=== PATIENT | female | born 1965 | race Two or more races ===

== ENCOUNTER 2017-02-27 12:10 | Inpatient (IN) | payer OTHER ==
--- NOTE | 2017-02-27 12:46 | PDOC ---
History of Present Illness - History of Present Illness Initial Comments: 02/27/17 14:03 The patient is a 53 year old female, with a significant past medical history of HTN, pituitary brain tumor, and borderline diabetes, who presents to the emergency department with right upper quadrant pain intermittently for 3 months. Patient states abdominal pain began 3 months ago, pain became so intense she decided to come to the ER. She describes her abdominal pain as sharp , intermittent, localized under right rib cage, does not radiate and says that it feels like something is being pulled out. She states no position makes it better or worse. She says it comes on randomly. Her pain today began this afternoon. And before today, her last episode was two days ago. She states that it will usually last for hours on end, sometimes the whole day. She tried taking extra strength tylenol but it did not lessen her pain. Two weeks she had an ultrasound done at her employer, [facility], by one of the techs and they found gallstones. She also states she vomited 2x this morning. She also states she experiences burning when she pees sometimes. She denies recent fevers, chills, headache or dizziness. She denies recent nausea, diarrhea or constipation. She denies recent frequency, urgency or hematuria. She denies recent chest pain or shortness of breath. Allergies: aspirin & ibruprofen Past surgical history: Social history: Nonsmoker. Denies EtOH use and recreational drug use. Primary Care Physician: <Myranda Chang - Last Filed: 02/27/17 14:03> <Mally Mccord - Last Filed: 02/27/17 16:23> - General Chief Complaint: Pain Stated Complaint: ABD/PELVIC PAIN Time Seen by Provider: 02/27/17 12:40 Past History <Myranda Chang - Last Filed: 02/27/17 14:03> - Past Medical History COPD: No DVT: No GI Disorders: Yes (GALLSTONES) Hypercholesterolemia: Yes Other medical history: PITUITARY TUMOR - Suicide/Smoking/Psychosocial Hx Smoking History: Never smoked Hx Alcohol Use: No Drug/Substance Use Hx: No <Mally Mccord - Last Filed: 02/27/17 16:23> - Past Medical History Allergies/Adverse Reactions: Allergies Allergy/AdvReac Type Severity Reaction Status Date / Time aspirin Allergy Difficulty Verified 02/27/17 12:23 Breathing ibuprofen Allergy Difficulty Verified 02/27/17 12:23 Breathing Home Medications: Ambulatory Orders NK [No Known Home Medication] 02/27/17 Review of Systems - Review of Systems Comments:: 02/27/17 14:03 GENERAL/CONSTITUTIONAL: No fever or chills. No weakness. HEAD, EYES, EARS, NOSE AND THROAT: No change in vision. No ear pain or discharge. No sore throat. GASTROINTESTINAL: +abdominal pain. +vomitting (2x).No nausea, diarrhea or constipation. GENITOURINARY: +dysuria No frequency, or change in urination. CARDIOVASCULAR: No chest pain or shortness of breath. RESPIRATORY: No cough, wheezing, or hemoptysis. MUSCULOSKELETAL: No joint or muscle swelling or pain. No neck or back pain. SKIN: No rash NEUROLOGIC: No headache, vertigo, loss of consciousness, or change in strength/ sensation. ENDOCRINE: No increased thirst. No abnormal weight change. HEMATOLOGIC/LYMPHATIC: No anemia, easy bleeding, or history of blood clots. ALLERGIC/IMMUNOLOGIC: No hives or skin allergy. <Myranda Chang - Last Filed: 02/27/17 14:03> *Physical Exam - Vital Signs Last Vital Signs Temp Pulse Resp BP Pulse Ox 98.0 F 115 H 20 203/114 98 02/27/17 12:19 02/27/17 12:19 02/27/17 12:19 02/27/17 12:19 02/27/17 12:19 - Physical Exam Comments: 02/27/17 14:05 GENERAL: Awake, alert, and fully oriented, in no acute distress HEAD: No signs of trauma EYES: PERRLA, EOMI, sclera anicteric, conjunctiva clear ENT: Auricles normal inspection, hearing grossly normal, nares patent, oropharynx clear without exudates. Moist mucosa NECK: Normal ROM, supple, no lymphadenopathy, JVD, or masses LUNGS: Breath sounds equal, clear to auscultation bilaterally. No wheezes, and no crackles HEART: Regular rate and rhythm, normal S1 and S2, no murmurs, rubs or gallops ABDOMEN: +RUQ + epigastric pain. Soft, nontender, normoactive bowel sounds. No guarding, no rebound. No masses EXTREMITIES: Normal range of motion, no edema. No clubbing or cyanosis. No cords, erythema, or tenderness NEUROLOGICAL: Cranial nerves II through XII grossly intact. Normal speech, normal gait SKIN: Warm, Dry, normal turgor, no rashes or lesions noted. <Myranda Chang - Last Filed: 02/27/17 14:03> - Vital Signs Last Vital Signs Temp Pulse Resp BP Pulse Ox 98.0 F 115 H 20 203/114 98 02/27/17 12:19 02/27/17 12:19 02/27/17 12:19 02/27/17 12:19 02/27/17 12:19 <Mally Mccord - Last Filed: 02/27/17 16:23> ED Treatment Course - LABORATORY CBC & Chemistry Diagram: 02/27/17 13:23 02/27/17 12:48 - ADDITIONAL ORDERS Additional order review: 02/27/17 13:23 RBC 4.86 MCV 86.0 MCHC 33.0 RDW 12.7 MPV 8.0 Neutrophils % 77.7 Lymphocytes % 13.0 Monocytes % 6.1 Eosinophils % 2.8 Basophils % 0.4 - Medications Given in the ED: ED Medications Discontinued Medications Generic Name Dose Route Start Last Admin Trade Name Freq PRN Reason Stop Dose Admin Famotidine/Sodium Chloride 20 mg in 50 mls @ 100 mls/hr 02/27/17 12:47 13:15 Pepcid 20 Mg Premixed Ivpb - IVPB 02/27/17 13:16 100 mls/hr ONCE ONE Administration Morphine Sulfate 2 mg 02/27/17 12:47 02/27/17 13:15 Morphine Injection - IVPUSH 02/27/17 12:48 2 mg ONCE ONE Administration Ondansetron HCl 4 mg 02/27/17 12:47 02/27/17 13:15 Zofran Injection IVPUSH 02/27/17 12:48 4 mg ONCE ONE Administration <Myranda Chang - Last Filed: 02/27/17 14:03> - LABORATORY CBC & Chemistry Diagram: 02/27/17 13:23 02/27/17 12:48 <Mally Mccord - Last Filed: 02/27/17 16:23> Medical Decision Making - Medical Decision Making 02/27/17 15:06 a/p: 52yo female with RUQ pain assoc w n/v today -hx of gallstones on ultrasound at [facility] -will check labs, concern for gastritis vs PUD vs acute jamie vs choledocho -repeat ultasound RUQ -npo -ivf -pain control -nausea control -reassess 02/27/17 15:45 pt with elevated LFT pt with cholelithiasis and mild pericholecystic fluid call placed to surgery 02/27/17 15:53 case discussed with WHITE who recommends iv abx, npo, poss OR tomorrow. admit to hospitalists. 02/27/17 16:23 case discussed with medicine. accepts pt to service. under emiliano archer md <Mally Mccord - Last Filed: 02/27/17 16:23> *DC/Admit/Observation/Transfer - Attestations Scribe Attestion: 02/27/17 14:05 Documentation prepared by Myranda Chang, acting as biomedical equipment tech for Mally Mccord DO. <Myranda Chang - Last Filed: 02/27/17 14:03> - Discharge Dispostion Admit: Yes - Attestations Physician Attestion: 02/27/17 15:53 I, Dr. Mally Mccord DO, attest that this document has been prepared under my direction and personally reviewed by me in its entirety. I further attest, that it accurately reflects all work, treatment, procedures and medical decision -making performed by me. <Mally Mccord - Last Filed: 02/27/17 16:23> Diagnosis at time of Disposition: Acute cholecystitis - Discharge Dispostion Condition at time of disposition: Guarded - Referrals Referrals: Paul Mosqueda MD [Primary Care Provider] -
[2017-02-27] MEDS ORDERED: ONDANSETRON 4 MG/2 ML VIAL IVPUSH ONE ×2 (12:47→19:31)
[2017-02-27] MEDS ORDERED: morphine CARPU-JECT 2 MG/1 ML DISP.SYRIN IVPUSH ONE (12:47)
[2017-02-27] MEDS ORDERED: FAMOTIDINE 20 MG/50 ML IVPB 20 MG/50 ML MG IVPB ONE ×2 (12:47→12:58)
[2017-02-27] MEDS ORDERED: SODIUM CHLORIDE 0.9% 1000 ML INFUS.BAG IV ONE (12:47)
[2017-02-27] MEDS ORDERED: ONDANSETRON 4 MG/2 ML VIAL ONE ×2 (12:58→20:06)
[2017-02-27] MEDS ORDERED: morphine SULFATE 4 MG/ML VIAL ONE ×2 (12:58→19:27)
[2017-02-27 13:51] LABS: BASOPHIL 0.4 % (0-2.0); EOSINOPHIL 2.8 % (0-4.5); MCH 28.4 pg (25.7-33.7); NEUTROPHILS 77.7 % (42.8-82.8); PLATELET COUNT 379 K/MM3 (134-434); RDW 12.7 % (11.6-15.6); WHITE BLOOD COUNT 13.8 K/mm3 (4.0-10.0)
[2017-02-27 14:22] LABS: ANION GAP 10 (8-16); BILIRUBIN,TOTAL 0.6 mg/dL (0.2-1.0); CALCIUM 8.9 mg/dL (8.5-10.1); CO2 23 mmol/L (21-32); CREATININE 0.8 mg/dL (0.55-1.02); GLUCOSE,RANDOM 110 mg/dL (74-106); SGPT/ALT 189 U/L (12-78); TOT PROT 8.4 g/dl (6.4-8.2)
[2017-02-27 14:23] LABS: ALK PHOS 280 U/L (45-117)
[2017-02-27 14:24] LABS: SGOT/AST 346 U/L (15-37)
[2017-02-27 14:35] LABS: INR 1.04 (0.82-1.09); PROTHROMBIN TIME (PATIENT) 11.7 SEC (9.98-11.88)
[2017-02-27 14:36] LABS: URINE APPEARANCE CLEAR; URINE BILIRUBIN NEGATIVE (NEGATIVE); URINE BLOOD NEGATIVE (NEGATIVE); URINE COLOR YELLOW; URINE GLUCOSE (UA) NEGATIVE (NEGATIVE); URINE KETONE NEGATIVE (NEGATIVE); URINE NITRITE NEGATIVE (NEGATIVE)
[2017-02-27 14:57] LABS: URINE PROTEIN 1+ (NEGATIVE)
[2017-02-27 15:13] LABS: URINE HYALINE CAST 1 /lpf; URINE MUCUS RARE; URINE RBC < 1; URINE WBC 2
[2017-02-27] MEDS ORDERED: cefTRIAXone 1 GM/50 ML BAG (PRE-DOCKED) IVPB ONE (15:49)
[2017-02-27] MEDS ORDERED: METRONIDAZOLE 500 MG PREMIXED 500 MG/100 ML MG IVPB ONE ×2 (15:50→16:52)
--- NOTE | 2017-02-27 16:14 | PN ---
Progress Note (short form) - Note Progress Note: surgery asked to evaluate for acute cholecystitis. u/s with gallstones. wbc elevated. elevated transaminases and alk phos. Plan- acute cholecysitits vs choledocholithiasis. agree with admission and rocephin/flagyl. suggest GI eval for choledocholithiasis. MRCP may be helpful if previous pituitary surgery permits. repeat lfts in am. keep npo. formal eval to follow.
[2017-02-27] MEDS ORDERED: CEFTRIAXONE 1 GM/50 ML BAG ONE (16:16)
--- NOTE | 2017-02-27 16:56 | HP ---
CHIEF COMPLAINT: epigastric pain PCP: Dr. Alfredo Anderson, Neurology, Elisa Davis MD, Dermatology Dr. [address]nott [phone], PCP ([facility]) HISTORY OF PRESENT ILLNESS: Patient is a 52 year old female with a significant past medical history of hypertension (on no meds as per [facility] pt states she is on meds, but does not remember which medication), pituitary brain tumor, migranes and borderline diabetes. She presents to the ED today with right upper quadrant pain intermittently for approximately 3 months. She states the pain got worse today prompting her to go the the ER. She describes her abdominal pain as sharp , intermittent, under her rib case but does not radiate. She states that she is uncomfortable now even at rest. She reports that she was at work and that her abdominal pain came on suddenly. She medicated with Tylenol with no relief. Patient had a recent ultrasound done recently at [facility] and states that gallstones were seen. She reports ongoing vomiting, nausea and epigastric discomfort and now has a worsening headache 9/10. She denies any chest pain, shortness of breath or dizziness. I called her stated pharmacy @ [facility] [phone] as patient does not recall her medication list. As per pharmacist the patient is on the following medications. Imitrex 25mg as needed for headache Meclazine 25mg BID Valtrex 1 gram daily Fiorecet daily as needed Pamelor 50mg @ hs daily As per pharmacist, no blood pressure medications are seen or have been ordered. Patient BP in the ER was elevated at 203/114 and she reports pain, repeat at the bedside now 168/100. Will start Lisinopril 20mg now and monitor BP. Will call her PCP in the a.m. and get current medication list. ER course was notable for: (1) BP 203/114>168/104 (2) Protein +1 urine (3) Migrane headache/photophobia (4) AST 345, ALT 189 (5) WBC 13.8 Recent Travel: denies PAST MEDICAL HISTORY: as noted above PAST SURGICAL HISTORY: c section Social History: Smoking: denies Alcohol: socially Drugs: denies Family History: Allergies aspirin Allergy (Verified 02/27/17 12:23) Difficulty Breathing ibuprofen Allergy (Verified 02/27/17 12:23) Difficulty Breathing HOME MEDICATIONS: Home Medications Medication Instructions Recorded NK [No Known Home Medication] 02/27/17 REVIEW OF SYSTEMS CONSTITUTIONAL: Absent: fever, chills, diaphoresis, generalized weakness, malaise, loss of appetite, weight change HEENT: Absent: rhinorrhea, nasal congestion, throat pain, throat swelling, difficulty swallowing, mouth swelling, ear pain, eye pain, visual changes CARDIOVASCULAR: Absent: chest pain, syncope, palpitations, irregular heart rate, lightheadedness , peripheral edema RESPIRATORY: Absent: cough, shortness of breath, dyspnea with exertion, orthopnea, wheezing, stridor, hemoptysis GASTROINTESTINAL: Absent: diarrhea, constipation, melena, hematochezia GENITOURINARY: Absent: dysuria, frequency, urgency, hesitancy, hematuria, flank pain, genital pain MUSCULOSKELETAL: Absent: myalgia, arthralgia, joint swelling, back pain, neck pain SKIN: Absent: rash, itching, pallor HEMATOLOGIC/IMMUNOLOGIC: Absent: easy bleeding, easy bruising, lymphadenopathy, frequent infections ENDOCRINE: Absent: unexplained weight gain, unexplained weight loss, heat intolerance, cold intolerance NEUROLOGIC: Absent: seizure, mental status changes, bladder or bowel incontinence PSYCHIATRIC: Absent: anxiety, depression, suicidal or homicidal ideation, hallucinations. PHYSICAL EXAMINATION Vital Signs - 24 hr 02/27/17 12:19 Temperature 98.0 F Pulse Rate 115 H Respiratory 20 Rate Blood Pressure 203/114 O2 Sat by Pulse 98 Oximetry (%) GENERAL: Awake, alert, and fully oriented, in no acute distress, reports migrane headache HEAD: Normal with no signs of trauma. EYES: Pupils equal, round and reactive to light, extraocular movements intact, sclera anicteric, conjunctiva clear. No lid lag. EARS, NOSE, THROAT: Ears normal, nares patent, oropharynx clear without exudates. Moist mucous membranes. NECK: Normal range of motion, supple without lymphadenopathy, JVD, or masses. LUNGS: Breath sounds equal, clear to auscultation bilaterally. No accessory muscle use. HEART: Regular rate and rhythm ABDOMEN: soft, tender on RUQ, nausea, vomiting MUSCULOSKELETAL: Normal range of motion at all joints. No bony deformities or tenderness. No CVA tenderness. UPPER EXTREMITIES: 2+ pulses, warm, well-perfused. No cyanosis. No clubbing. No peripheral edema. LOWER EXTREMITIES: 2+ pulses, warm, well-perfused. No calf tenderness. No peripheral edema. NEUROLOGICAL: Cranial nerves II-XII intact. Normal speech. Normal gait. PSYCHIATRIC: Cooperative. Good eye contact. Appropriate mood and affect. SKIN: Warm, dry, normal turgor, no rashes or lesions noted, normal capillary refill. Laboratory Results - last 24 hr 02/27/17 02/27/17 02/27/17 12:48 12:48 12:48 WBC RBC Hgb Hct MCV MCH MCHC RDW Plt Count MPV Neutrophils % Lymphocytes % Monocytes % Eosinophils % Basophils % PT with INR INR PTT (Actin FS) 31.5 Sodium 138 Potassium 4.2 Chloride 105 Carbon Dioxide 23 Anion Gap 10 BUN 8 Creatinine 0.8 Creat Clearance w eGFR > 60 Random Glucose 110 H Lactic Acid 1.2 Calcium 8.9 Magnesium Total Bilirubin 0.6 AST 346 H ALT 189 H Alkaline Phosphatase 280 H Total Protein 8.4 H Albumin 4.0 Lipase 148 Urine Color Urine Appearance Urine pH Ur Specific Pheba Urine Protein Urine Glucose (UA) Urine Ketones Urine Blood Urine Nitrite Urine Bilirubin Urine Urobilinogen Urine WBC (Auto) Urine RBC (Auto) Ur Epithelial Cells Hyaline Casts Urine Mucus Urine HCG, Qual 02/27/17 02/27/17 02/27/17 12:48 12:48 12:48 WBC RBC Hgb Hct MCV MCH MCHC RDW Plt Count MPV Neutrophils % Lymphocytes % Monocytes % Eosinophils % Basophils % PT with INR 11.70 INR 1.04 PTT (Actin FS) Sodium Potassium Chloride Carbon Dioxide Anion Gap BUN Creatinine Creat Clearance w eGFR Random Glucose Lactic Acid Calcium Magnesium 2.0 Total Bilirubin AST ALT Alkaline Phosphatase Total Protein Albumin Lipase Urine Color Yellow Urine Appearance Clear Urine pH 5.0 Ur Specific Pheba 1.013 Urine Protein 1+ H Urine Glucose (UA) Negative Urine Ketones Negative Urine Blood Negative Urine Nitrite Negative Urine Bilirubin Negative Urine Urobilinogen 2.0 H Urine WBC (Auto) 2 Urine RBC (Auto) < 1 Ur Epithelial Cells Rare Hyaline Casts 1 Urine Mucus Rare Urine HCG, Qual Negative 02/27/17 13:23 WBC 13.8 H RBC 4.86 Hgb 13.8 Hct 41.8 MCV 86.0 MCH 28.4 MCHC 33.0 RDW 12.7 Plt Count 379 MPV 8.0 Neutrophils % 77.7 Lymphocytes % 13.0 Monocytes % 6.1 Eosinophils % 2.8 Basophils % 0.4 PT with INR INR PTT (Actin FS) Sodium Potassium Chloride Carbon Dioxide Anion Gap BUN Creatinine Creat Clearance w eGFR Random Glucose Lactic Acid Calcium Magnesium Total Bilirubin AST ALT Alkaline Phosphatase Total Protein Albumin Lipase Urine Color Urine Appearance Urine pH Ur Specific Pheba Urine Protein Urine Glucose (UA) Urine Ketones Urine Blood Urine Nitrite Urine Bilirubin Urine Urobilinogen Urine WBC (Auto) Urine RBC (Auto) Ur Epithelial Cells Hyaline Casts Urine Mucus Urine HCG, Qual ASSESSMENT/PLAN: Patient is a 52 year old female with a significant past medical history of hypertension (on no meds as per [facility] pt states she is on meds, but does not remember which medication), pituitary brain tumor, migranes and borderline diabetes. She presents to the ED today with right upper quadrant intermittently for approximately 3 months. She states the pain got worse today prompting her to go the the ER. She describes her abdominal pain as sharp, intermittent, under her rib case but does not radiate. She states that she is uncomfortable now even at rest. She reports that she was at work and that her abdominal pain came on suddenly. She medicated with Tylenol with no relief. Patient had a recent ultrasound done recently at [facility] and states that gallstones were seen. She reports ongoing vomiting, nausea and epigastric discomfort and now has a worsening headache 9/10. She denies any chest pain, shortness of breath or dizziness. Imaging: Abdominal ultrasound: Cholelithiasis with trace pericholecystic fluid. Acute choleystitis cannot be excluded. The gallbladder contains multiple calculi Chest Xray: ordered/pending EKG: ordered/pending GI: Abdominal pain/Epigastric pain, acute Cholelithiasis with trace pericholecystic fluid. Acute choleystitis cannot be excluded WBC 13.8 NPO IVF Zofran for nausea Morphine for pain control Flagyl q8, Rocephin daily Blood cultures ordered Hepatomegaly, acute vs. chronic Enlarged liver, hyperechoic consistent with diffuse fatty infiltration Monitor ast/alt Cardiology: Hypertension, not controlled Started on Lisinopril 20mg daily Monitor BP Trend troponins x 3 Obtain medication list, pt states she is on BP meds, does not recall which one. States she uses only one pharmacy. Pharmacy called, no BP meds on record Neuro: Pituitary brain tumor Obtain medical records from [facility] Migranes, chronic On Fiorcet Monitor Endocrine: Boderline Diabetes Hmga1c in a.m. F.E.N. Fluids: NS @ 100cc/hr Electrolytes: monitor Nutrition: NPO except for PO meds Prophylaxis: DVT: Heparin BID GI: Protonix 40mg daily Disposition. Requires inpatient hospitalization. full code.
[2017-02-27] MEDS ORDERED: METRONIDAZOLE PREMIXED IVPB 250 MG/50 ML MG IVPB SCH (17:00)
[2017-02-27] MEDS ORDERED: morphine CARPU-JECT 2 MG/1 ML DISP.SYRIN IVPUSH PRN (17:02)
[2017-02-27] MEDS ORDERED: morphine SULFATE 4 MG/ML VIAL IVPUSH PRN (17:02)
[2017-02-27] MEDS ORDERED: PANTOPRAZOLE SODIUM 40 MG VIAL IVPUSH ONE (17:03)
[2017-02-27] MEDS ORDERED: ACETAMINOPHEN 1000 MG/100 ML VIAL (NON FORMULARY) IVPB ONE (17:19)
[2017-02-27] MEDS ORDERED: PANTOPRAZOLE SODIUM 40 MG/100 ML BAG IVPB ONE (17:27)
[2017-02-27] MEDS ORDERED: ACETAMINOPHEN INJECTION 100 ML IVPB ONE (17:27)
[2017-02-27] MEDS ORDERED: SUMAtriptan SUCCINATE 25 MG TABLET PO ONE (17:41)
[2017-02-27] MEDS ORDERED: MECLIZINE HCL 25 MG TABLET (FP) PO PRN (17:43)
[2017-02-27] MEDS ORDERED: ONDANSETRON 4 MG/2 ML VIAL IVPUSH PRN (17:55)
[2017-02-27] MEDS: SODIUM CHLORIDE 1,000 ML IV SCH (17:57)
[2017-02-27] MEDS ORDERED: LISINOPRIL 20 MG TABLET (FP) PO ONE (18:16)
[2017-02-27 18:21] VITALS: BMI 31.3
[2017-02-27] MEDS ORDERED: morphine CARPU-JECT 4 MG/1 ML DISP.SYRIN IVPUSH ONE (19:31)
[2017-02-27] MEDS ORDERED: ACETAMINOPHEN/CAFFEINE/BUTALBITAL 1 TAB ONE (20:05)
[2017-02-27] MEDS ORDERED: SUMAtriptan SUCCINATE 50 MG TABLET ONE (20:06)
[2017-02-27] MEDS ORDERED: LISINOPRIL 20 MG TABLET (FP) ONE (20:07)
[2017-02-27] MEDS: ACETAMINOPHEN/CAFFEINE/BUTALBITAL 1 TAB PO PRN (21:26)
[2017-02-27 21:51] LABS: URINE LEUK ESTERASE Negative (NEGATIVE)
[2017-02-27] MEDS ORDERED: NORTRIPTYLINE HCL 50 MG CAPSULE PO SCH (22:00)
[2017-02-27] MEDS ORDERED: HEPARIN NA (PORCINE) 5,000 UNITS/ML 1ML VIAL SQ SCH (22:00)
[2017-02-28] MEDS: METRONIDAZOLE PREMIXED IVPB 250 MG/50 ML MG IVPB SCH ×4 (00:08→17:10)
[2017-02-28] MEDS: SODIUM CHLORIDE 1,000 ML IV SCH (00:24)
[2017-02-28 07:55] LABS: MCH 28.7 pg (25.7-33.7); MCHC 33.2 g/dl (32.0-36.0); MEAN CELL VOLUME 86.7 fl (80-96); MEAN PLT VOLUME 8.2 fl (7.5-11.1); PLATELET COUNT 320 K/MM3 (134-434); RDW 12.9 % (11.6-15.6); WHITE BLOOD COUNT 6.8 K/mm3 (4.0-10.0)
[2017-02-28 08:25] LABS: ALBUMIN 3.3 g/dl (3.4-5.0); ANION GAP 8 (8-16); BILIRUBIN,TOTAL 1.4 mg/dL (0.2-1.0); CALCIUM 8.2 mg/dL (8.5-10.1); CO2 24 mmol/L (21-32); CREATININE 0.6 mg/dL (0.55-1.02); GLUCOSE,RANDOM 96 mg/dL (74-106); MAGNESIUM 1.9 mg/dL (1.8-2.4); SGOT/AST 344 U/L (15-37); SGPT/ALT 360 U/L (12-78); TOT PROT 6.7 g/dl (6.4-8.2)
[2017-02-28 08:26] LABS: ALK PHOS 315 U/L (45-117)
[2017-02-28 08:29] LABS: INR 1.07 (0.82-1.09); PROTHROMBIN TIME (PATIENT) 12.1 SEC (9.98-11.88)
[2017-02-28 08:32] LABS: ACTIVATED PTT 27.8 SECONDS (26.9-34.4)
[2017-02-28 08:34] LABS: CHOLESTEROL 223 mg/dL (50-200)
[2017-02-28 08:56] LABS: BASOPHIL 0.3 % (0-2.0); EOSINOPHIL 4.3 % (0-4.5); MCH 28.9 pg (25.7-33.7); MCHC 33.2 g/dl (32.0-36.0); MEAN CELL VOLUME 86.8 fl (80-96); MEAN PLT VOLUME 8.2 fl (7.5-11.1); NEUTROPHILS 66.3 % (42.8-82.8); PLATELET COUNT 317 K/MM3 (134-434); RDW 12.8 % (11.6-15.6); WHITE BLOOD COUNT 6.7 K/mm3 (4.0-10.0)
[2017-02-28] MEDS: ACETAMINOPHEN/CAFFEINE/BUTALBITAL 1 TAB PO PRN ×2 (09:05→21:57)
[2017-02-28] MEDS ORDERED: CEFTRIAXONE 1 GM in DEXTROSE 5%-WATER - 100 ML IVPB SCH (10:00)
--- NOTE | 2017-02-28 10:07 | PN ---
Progress Note (short form) - Note Progress Note: surgery lfts increasing. recommend evaluation of cbd.
[2017-02-28] MEDS ORDERED: CEFTRIAXONE 1 G/50 ML PREMIX 50 ML IVPB SCH (10:54)
[2017-02-28] MEDS: CEFTRIAXONE 1 G/50 ML PREMIX 50 ML IVPB SCH (11:02)
[2017-02-28] MEDS: LISINOPRIL 10 MG TABLET (FP) PO SCH (11:02)
--- NOTE | 2017-02-28 11:08 | EKG ---
Test Reason : Blood Pressure : / mmHG Vent. Rate : 086 BPM Atrial Rate : 086 BPM P-R Int : 144 ms QRS Dur : 070 ms QT Int : 382 ms P-R-T Axes : 065 011 033 degrees QTc Int : 457 ms NORMAL SINUS RHYTHM NORMAL ECG NO PREVIOUS ECGS AVAILABLE Confirmed by LULY PIMENTEL MD ([id number]) on 02/28/2017 11:08:07 AM Referred By: Confirmed By:LULY PIMENTEL MD
--- NOTE | 2017-02-28 11:14 | CON.GI ---
Consult Consult Specialty:: GI Reason for Consultation:: RUQ pain - History of Present Illness History of Present Illness: A 52 yof with history of pituitary tumor, HTN and RUQ pain x 3 month on/ff. The pain got worse 1 day ago. No alleviating, or aggravating factors. 01/22, RUQ, non-radiating with chills, nausea and vomiting, no jaundice, diarrhea, melena, hematemesis. No history of hepatobiliary issues in the past. No history of PUD, gastric ulcers, pancreatitis. Denies ETOH, smoking. Lipase normal, transaminases in 300, ALP and t. bili mildly elevated. US positive for cholelithiasis, possible cholecyctitis. biliary ducts not dilated - History Source History Provided By: Patient Limitations to Obtaining History: No Limitations - Alcohol/Substance Use Hx Alcohol Use: No - Smoking History Smoking history: Never smoked Home Medications - Allergies Allergies/Adverse Reactions: Allergies Allergy/AdvReac Type Severity Reaction Status Date / Time aspirin Allergy Difficulty Verified 02/27/17 12:23 Breathing ibuprofen Allergy Difficulty Verified 02/27/17 12:23 Breathing - Home Medications Home Medications: Ambulatory Orders Nortriptyline HCl [Pamelor -] 50 mg PO HS 02/27/17 Sumatriptan Succinate [Imitrex] 25 mg PO ASDIR 02/27/17 Valacyclovir HCl [Valtrex] 1,000 mg PO BID PRN 02/27/17 Family Disease History - Family Disease History Family History: Unremarkable Review of Systems Findings/Remarks: please refer to H&P Physical Exam-GI Vital Signs: Vital Signs Temperature 97.9 F 02/28/17 05:55 Pulse Rate 77 02/28/17 05:55 Respiratory Rate 20 02/28/17 05:55 Blood Pressure 111/66 02/28/17 05:55 O2 Sat by Pulse Oximetry (%) 98 02/27/17 21:46 Constitutional: Yes: Well Nourished, Mild Distress Eyes: Yes: Conjunctiva Clear HENT: Yes: Atraumatic Neck: Yes: Supple Cardiovascular: Yes: Regular Rate and Rhythm Respiratory: Yes: Regular ...Auscultate: Yes: Normoactive Bowel Sounds ...Palpate: Yes: Tenderness, Epigastium, Tenderness, Rebound (RUQ, positive harrison's) Neurological: Yes: Alert, Oriented Labs: CBC, BMP 02/28/17 06:55 02/28/17 06:55 INR, PTT INR 1.07 (0.82-1.09) 02/28/17 06:55 CBCD WBC 6.7 K/mm3 (4.0-10.0) D 02/28/17 06:55 RBC 4.28 M/mm3 (3.60-5.2) 02/28/17 06:55 Hgb 12.4 GM/dL (10.7-15.3) D 02/28/17 06:55 Hct 37.2 % (32.4-45.2) 02/28/17 06:55 MCV 86.8 fl (80-96) 02/28/17 06:55 MCHC 33.2 g/dl (32.0-36.0) 02/28/17 06:55 RDW 12.8 % (11.6-15.6) 02/28/17 06:55 Plt Count 317 K/MM3 (134-434) 02/28/17 06:55 MPV 8.2 fl (7.5-11.1) 02/28/17 06:55 CMP Sodium 138 mmol/L (136-145) 02/28/17 06:55 Potassium 4.6 mmol/L (3.5-5.1) 02/28/17 06:55 Chloride 106 mmol/L (98-107) 02/28/17 06:55 Carbon Dioxide 24 mmol/L (21-32) 02/28/17 06:55 Anion Gap 8 (8-16) 02/28/17 06:55 BUN 5 mg/dL (7-18) L D 02/28/17 06:55 Creatinine 0.6 mg/dL (0.55-1.02) D 02/28/17 06:55 Creat Clearance w eGFR > 60 (>60) 02/28/17 06:55 Calcium 8.2 mg/dL (8.5-10.1) L 02/28/17 06:55 Total Bilirubin 1.4 mg/dL (0.2-1.0) H D 02/28/17 06:55 AST 344 U/L (15-37) H 02/28/17 06:55 ALT 360 U/L (12-78) H D 02/28/17 06:55 Alkaline Phosphatase 315 U/L (45-117) H 02/28/17 06:55 Total Protein 6.7 g/dl (6.4-8.2) D 02/28/17 06:55 Albumin 3.3 g/dl (3.4-5.0) L 02/28/17 06:55 Lipase normal Problem List - Problems (1) Transaminasemia Code(s): R74.0 - NONSPEC ELEV OF LEVELS OF TRANSAMNS & LACTIC ACID DEHYDRGNSE (2) Cholestasis Code(s): K83.1 - OBSTRUCTION OF BILE DUCT (3) Acute cholecystitis Code(s): K81.0 - ACUTE CHOLECYSTITIS Assessment/Plan Cholecystitis cholelithiasis Agree with NPO, IVF, antiemetics, pain mamagement and Abx HIDA MRCP Surgery evaluation
--- NOTE | 2017-02-28 11:50 | PN ---
Physical Exam: SUBJECTIVE: Patient seen and examined at the bedside. She reports migrane headache, photophobia. OBJECTIVE: Patient's PCP Dr. Knott called , message left Vital Signs Period Temp Pulse Resp BP Sys/Wilkins Pulse Ox Last 24 Hr 97.9 F-98.4 F 72-115 20-20 111-203/66-114 98-98 GENERAL: The patient is awake, alert, and fully oriented, in no acute distress. HEAD: Normal with no signs of trauma. EYES: PERRL, extraocular movements intact, sclera anicteric, conjunctiva clear. No ptosis. ENT: Ears normal, nares patent, oropharynx clear without exudates, moist mucous membranes. NECK: Trachea midline, full range of motion, supple. LUNGS: Breath sounds equal, clear to auscultation bilaterally, no wheezes, no crackles, no accessory muscle use. HEART: Regular rate and rhythm, S1, S2 without murmur, rub or gallop. ABDOMEN: Soft, non distended, tender RUQ on light palpation, abd soft, hypoactive bowel sounds EXTREMITIES: 2+ pulses, warm, well-perfused, no edema. NEUROLOGICAL: Cranial nerves II through XII grossly intact. Normal speech, gait not observed. PSYCH: Normal mood, normal affect. SKIN: Warm, dry, normal turgor, no rashes or lesions noted Laboratory Results - last 24 hr 02/27/17 02/27/17 02/27/17 12:48 12:48 12:48 WBC RBC Hgb Hct MCV MCH MCHC RDW Plt Count MPV Neutrophils % Lymphocytes % Monocytes % Eosinophils % Basophils % PT with INR INR PTT (Actin FS) 31.5 Sodium 138 Potassium 4.2 Chloride 105 Carbon Dioxide 23 Anion Gap 10 BUN 8 Creatinine 0.8 Creat Clearance w eGFR > 60 Random Glucose 110 H Hemoglobin A1c % Lactic Acid 1.2 Calcium 8.9 Phosphorus Magnesium Total Bilirubin 0.6 Direct Bilirubin AST 346 H ALT 189 H Alkaline Phosphatase 280 H Troponin I Total Protein 8.4 H Albumin 4.0 Triglycerides Cholesterol Total LDL Cholesterol HDL Cholesterol Lipase 148 Urine Color Urine Appearance Urine pH Ur Specific Barney Urine Protein Urine Glucose (UA) Urine Ketones Urine Blood Urine Nitrite Urine Bilirubin Urine Urobilinogen Ur Leukocyte Esterase Urine WBC (Auto) Urine RBC (Auto) Ur Epithelial Cells Hyaline Casts Urine Mucus Urine HCG, Qual Blood Type Antibody Screen Spec Expiration Date 02/27/17 02/27/17 02/27/17 12:48 12:48 12:48 WBC RBC Hgb Hct MCV MCH MCHC RDW Plt Count MPV Neutrophils % Lymphocytes % Monocytes % Eosinophils % Basophils % PT with INR 11.70 INR 1.04 PTT (Actin FS) Sodium Potassium Chloride Carbon Dioxide Anion Gap BUN Creatinine Creat Clearance w eGFR Random Glucose Hemoglobin A1c % Lactic Acid Calcium Phosphorus Magnesium 2.0 Total Bilirubin Direct Bilirubin AST ALT Alkaline Phosphatase Troponin I Total Protein Albumin Triglycerides Cholesterol Total LDL Cholesterol HDL Cholesterol Lipase Urine Color Yellow Urine Appearance Clear Urine pH 5.0 Ur Specific Barney 1.013 Urine Protein 1+ H Urine Glucose (UA) Negative Urine Ketones Negative Urine Blood Negative Urine Nitrite Negative Urine Bilirubin Negative Urine Urobilinogen 2.0 H Ur Leukocyte Esterase Negative Urine WBC (Auto) 2 Urine RBC (Auto) < 1 Ur Epithelial Cells Rare Hyaline Casts 1 Urine Mucus Rare Urine HCG, Qual Negative Blood Type Antibody Screen Spec Expiration Date 02/27/17 02/27/17 02/27/17 13:23 17:15 17:20 WBC 13.8 H RBC 4.86 Hgb 13.8 Hct 41.8 MCV 86.0 MCH 28.4 MCHC 33.0 RDW 12.7 Plt Count 379 MPV 8.0 Neutrophils % 77.7 Lymphocytes % 13.0 Monocytes % 6.1 Eosinophils % 2.8 Basophils % 0.4 PT with INR INR PTT (Actin FS) Sodium Potassium Chloride Carbon Dioxide Anion Gap BUN Creatinine Creat Clearance w eGFR Random Glucose Hemoglobin A1c % Lactic Acid Calcium Phosphorus Magnesium Total Bilirubin Direct Bilirubin AST ALT Alkaline Phosphatase Troponin I Total Protein Albumin Triglycerides Cholesterol Total LDL Cholesterol HDL Cholesterol Lipase Urine Color Urine Appearance Urine pH Ur Specific Barney Urine Protein Urine Glucose (UA) Urine Ketones Urine Blood Urine Nitrite Urine Bilirubin Urine Urobilinogen Ur Leukocyte Esterase Urine WBC (Auto) Urine RBC (Auto) Ur Epithelial Cells Hyaline Casts Urine Mucus Urine HCG, Qual Blood Type Cancelled Cancelled Antibody Screen Cancelled Spec Expiration Date Cancelled 02/27/17 02/27/17 02/28/17 21:32 21:32 06:55 WBC 6.7 D RBC 4.28 Hgb 12.4 D Hct 37.2 MCV 86.8 MCH 28.9 MCHC 33.2 RDW 12.8 Plt Count 317 MPV 8.2 Neutrophils % 66.3 Lymphocytes % 22.5 D Monocytes % 6.6 Eosinophils % 4.3 Basophils % 0.3 PT with INR INR PTT (Actin FS) Sodium Potassium Chloride Carbon Dioxide Anion Gap BUN Creatinine Creat Clearance w eGFR Random Glucose Hemoglobin A1c % Lactic Acid Calcium Phosphorus Magnesium Total Bilirubin Direct Bilirubin AST ALT Alkaline Phosphatase Troponin I < 0.02 Total Protein Albumin Triglycerides Cholesterol Total LDL Cholesterol HDL Cholesterol Lipase Urine Color Urine Appearance Urine pH Ur Specific Barney Urine Protein Urine Glucose (UA) Urine Ketones Urine Blood Urine Nitrite Urine Bilirubin Urine Urobilinogen Ur Leukocyte Esterase Urine WBC (Auto) Urine RBC (Auto) Ur Epithelial Cells Hyaline Casts Urine Mucus Urine HCG, Qual Blood Type A POSITIVE Antibody Screen Negative Spec Expiration Date 02/28/17 02/28/17 02/28/17 06:55 06:55 06:55 WBC 6.8 RBC 4.29 Hgb 12.3 Hct 37.1 MCV 86.7 MCH 28.7 MCHC 33.2 RDW 12.9 Plt Count 320 MPV 8.2 Neutrophils % Lymphocytes % Monocytes % Eosinophils % Basophils % PT with INR 12.10 H INR 1.07 PTT (Actin FS) 27.8 Sodium Potassium Chloride Carbon Dioxide Anion Gap BUN Creatinine Creat Clearance w eGFR Random Glucose Hemoglobin A1c % Lactic Acid Calcium Phosphorus Magnesium Total Bilirubin Cancelled Direct Bilirubin Cancelled AST Cancelled ALT Cancelled Alkaline Phosphatase Cancelled Troponin I Total Protein Cancelled Albumin Cancelled Triglycerides Cholesterol Total LDL Cholesterol HDL Cholesterol Lipase Urine Color Urine Appearance Urine pH Ur Specific Barney Urine Protein Urine Glucose (UA) Urine Ketones Urine Blood Urine Nitrite Urine Bilirubin Urine Urobilinogen Ur Leukocyte Esterase Urine WBC (Auto) Urine RBC (Auto) Ur Epithelial Cells Hyaline Casts Urine Mucus Urine HCG, Qual Blood Type Antibody Screen Spec Expiration Date 02/28/17 02/28/17 02/28/17 06:55 06:55 06:55 WBC RBC Hgb Hct MCV MCH MCHC RDW Plt Count MPV Neutrophils % Lymphocytes % Monocytes % Eosinophils % Basophils % PT with INR INR PTT (Actin FS) Sodium 138 Potassium 4.6 Chloride 106 Carbon Dioxide 24 Anion Gap 8 BUN 5 L D Creatinine 0.6 D Creat Clearance w eGFR > 60 Random Glucose 96 Hemoglobin A1c % 6.0 Lactic Acid Calcium 8.2 L Phosphorus 3.0 Magnesium 1.9 Total Bilirubin 1.4 H D Direct Bilirubin 1.0 H AST 344 H ALT 360 H D Alkaline Phosphatase 315 H Troponin I Total Protein 6.7 D Albumin 3.3 L Triglycerides 89 Cholesterol 223 H Total LDL Cholesterol 138 H HDL Cholesterol 60 Lipase Urine Color Urine Appearance Urine pH Ur Specific Barney Urine Protein Urine Glucose (UA) Urine Ketones Urine Blood Urine Nitrite Urine Bilirubin Urine Urobilinogen Ur Leukocyte Esterase Urine WBC (Auto) Urine RBC (Auto) Ur Epithelial Cells Hyaline Casts Urine Mucus Urine HCG, Qual Blood Type Antibody Screen Spec Expiration Date Active Medications Generic Name Dose Route Start Last Admin Trade Name Freq PRN Reason Stop Dose Admin Acetaminophen/Butalbital/Caffeine 1 tablet 02/27/17 17:44 02/28/17 09:05 Fioricet - PO 1 tablet Q6H PRN Administration FEVER OR PAIN Atorvastatin Calcium 20 mg 02/28/17 22:00 Lipitor - PO HS ANNMARIE Sodium Chloride 1,000 mls @ 100 mls/hr 02/27/17 17:00 02/28/17 00:24 Normal Saline - IV 100 mls/hr ASDIR ANNMARIE Administration Metronidazole 250 mg in 50 mls @ 50 mls/hr 02/27/17 23:00 02/28/17 11:01 Flagyl 250mg Premixed Ivpb - IVPB 50 mls/hr Q8H-IV ANNMARIE Administration CEFTRIAXONE 1 G/50 ML PREMIX 50 mls @ 100 mls/hr 02/28/17 11:00 02/28/17 11: 02 Ceftriaxone 1 Gm-D5w Bag IVPB 100 mls/hr DAILY ANNMARIE Administration Lisinopril 20 mg 02/28/17 10:00 02/28/17 11:02 Prinivil PO 20 mg DAILY ANNMARIE Administration Meclizine HCl 25 mg 02/27/17 17:43 02/28/17 00:19 Antivert - PO 25 mg BID PRN Administration VERTIGO Morphine Sulfate 2 mg 02/27/17 17:02 Morphine Sulfate IVPUSH Q4H PRN PAIN Nortriptyline HCl 50 mg 02/28/17 07:59 Pamelor - PO HS ANNMARIE Ondansetron HCl 4 mg 02/27/17 17:55 02/28/17 02:35 Zofran Injection IVPUSH 4 mg Q6H PRN Administration NAUSEA AND/OR VOMITING Sumatriptan Succinate 25 mg 02/27/17 19:41 Imitrex - PO Q8H PRN HEADACHE Valacyclovir HCl 1,000 mg 02/28/17 10:00 Valtrex - PO DAILY ANNMARIE ASSESSMENT/PLAN: Patient is a 52 year old female with a significant past medical history of hypertension (on no meds as per [facility] pt states she is on meds, but does not remember which medication), pituitary brain tumor, migranes and borderline diabetes. She presents to the ED today with right upper quadrant intermittently for approximately 3 months. She states the pain got worse today prompting her to go the the ER. She describes her abdominal pain as sharp, intermittent, under her rib case but does not radiate. She states that she is uncomfortable now even at rest. She reports that she was at work and that her abdominal pain came on suddenly. She medicated with Tylenol with no relief. Patient had a recent ultrasound done recently at [facility] and states that gallstones were seen. She reports ongoing vomiting, nausea and epigastric discomfort and now has a worsening headache 9/10. She denies any chest pain, shortness of breath or dizziness. Imaging: Abdominal ultrasound: Cholelithiasis with trace pericholecystic fluid. Acute choleystitis cannot be excluded. The gallbladder contains multiple calculi EKG: NSR GI: Abdominal pain/Epigastric pain, acute Cholelithiasis with trace pericholecystic fluid. Acute choleystitis cannot be excluded WBC 6.7 NPO except for PO meds IVF Reglan scheduled Morphine for pain control Flagyl q8, Rocephin daily Blood cultures ordered/pending Hepatomegaly, acute vs. chronic Enlarged liver, hyperechoic consistent with diffuse fatty infiltration Monitor ast/alt Cardiology: Hypertension, controlled Started on Lisinopril 20mg daily Monitor BP [facility] records requested Neuro: Pituitary brain tumor Patient follows neurologist at [facility] she has yearly MRI for follow up Neurology to evaluate Migranes, chronic On Fiorcet Dexamethasone 10mg given by Neuro Endocrine: Not diabetic hmga1c, 6.0 F.E.N. Fluids: NS @ 100cc/hr Electrolytes: monitor Nutrition: NPO except for PO meds Prophylaxis: DVT: Heparin BID GI: Protonix 40mg daily Disposition. Requires inpatient hospitalization. full code.
[2017-02-28] MEDS: METOCLOPRAMIDE HCL INJECTION 10 MG/2 ML VIAL IVPB SCH ×3 (13:43→21:49)
[2017-02-28] MEDS ORDERED: DEXAMETHASONE SOD PHOSPHATE 4 MG/1 ML VIAL IVPB ONE (14:00)
[2017-02-28] MEDS ORDERED: DEXAMETHASONE SOD PHOSPHATE 10 MG/1 ML VIAL IVPB ONE (14:00)
--- NOTE | 2017-02-28 14:26 | CONSULT ---
Consult - text type - Consultation Consultation Note: Neurology History of Present Illness The patient is a 53 year old female, with a significant past medical history of HTN, pituitary brain tumor, and borderline diabetes, who presents to the emergency department with right upper quadrant pain intermittently for 3 months. Patient states abdominal pain began 3 months ago, pain became so intense she decided to come to the ER. She describes her abdominal pain as sharp , intermittent, localized under right rib cage. she has been getting a GI workup. Since yesterday she developed a s headache that on the right side and she does have a history of migraines. She also reports a history of pituitary adenoma but was unsure of the Exact size. She reports having her neurologic and neurosurgical care through [facility] and ddoes report having imaging completed through them. During my evaluation, she is extremely uncomfortable with a rag on her head with photophobia,, closing her eyes. She appears to have migraine headache symptoms and would benefit from aggressive migraine treatment. Past History - Past Medical History COPD: No DVT: No GI Disorders: Yes (GALLSTONES) Hypercholesterolemia: Yes Other medical history: PITUITARY TUMOR - Suicide/Smoking/Psychosocial Hx Smoking History: Never smoked Hx Alcohol Use: No Drug/Substance Use Hx: No - Past Medical History Allergies/Adverse Reactions: Allergies Allergy/AdvReac Type Severity Reaction Status Date / Time aspirin Allergy Difficulty Verified 02/27/17 12:23 Breathing ibuprofen Allergy Difficulty Verified 02/27/17 12:23 Breathing Active Medications Acetaminophen/Butalbital/Caffeine (Fioricet -) 1 tablet PO Q6H PRN PRN Reason: FEVER OR PAIN Last Admin: 02/28/17 09:05 Dose: 1 tablet Atorvastatin Calcium (Lipitor -) 20 mg PO HS ANNMARIE Sodium Chloride (Normal Saline -) 1,000 mls @ 100 mls/hr IV ASDIR ANNMARIE Last Admin: 02/28/17 00:24 Dose: 100 mls/hr Metronidazole (Flagyl 250mg Premixed Ivpb -) 250 mg in 50 mls @ 50 mls/hr IVPB Q8H-IV ANNMARIE Last Admin: 02/28/17 11:01 Dose: 50 mls/hr CEFTRIAXONE 1 G/50 ML PREMIX (Ceftriaxone 1 Gm-D5w Bag) 50 mls @ 100 mls/hr IVPB DAILY ANNMARIE Last Admin: 02/28/17 11:02 Dose: 100 mls/hr Lisinopril (Prinivil) 20 mg PO DAILY [facility] Last Admin: 02/28/17 11:02 Dose: 20 mg Meclizine HCl (Antivert -) 25 mg PO BID PRN PRN Reason: VERTIGO Last Admin: 02/28/17 00:19 Dose: 25 mg Metoclopramide HCl (Reglan Injection -) 10 mg IVPB Q6H-IV ANNMARIE Last Admin: 02/28/17 13:43 Dose: 10 mg Morphine Sulfate (Morphine Sulfate) 2 mg IVPUSH Q4H PRN PRN Reason: PAIN Nortriptyline HCl (Pamelor -) 50 mg PO HS ANNMARIE Sumatriptan Succinate (Imitrex -) 25 mg PO Q8H PRN PRN Reason: HEADACHE Valacyclovir HCl (Valtrex -) 1,000 mg PO DAILY [facility] Review of Systems GENERAL/CONSTITUTIONAL: No fever or chills. No weakness. HEAD, EYES, EARS, NOSE AND THROAT: No change in vision. No ear pain or discharge. No sore throat. GASTROINTESTINAL: +abdominal pain. +vomitting (2x).No nausea, diarrhea or constipation. GENITOURINARY: +dysuria No frequency, or change in urination. CARDIOVASCULAR: No chest pain or shortness of breath. RESPIRATORY: No cough, wheezing, or hemoptysis. MUSCULOSKELETAL: No joint or muscle swelling or pain. No neck or back pain. SKIN: No rash NEUROLOGIC: No headache, vertigo, loss of consciousness, or change in strength/ sensation. ENDOCRINE: No increased thirst. No abnormal weight change. HEMATOLOGIC/LYMPHATIC: No anemia, easy bleeding, or history of blood clots. ALLERGIC/IMMUNOLOGIC: No hives or skin allergy. *Physical Exam - Vital Signs Last Vital Signs Temp Pulse Resp BP Pulse Ox 98.0 F 115 H 20 203/114 98 02/27/17 12:19 02/27/17 12:19 02/27/17 12:19 02/27/17 12:19 02/27/17 12:19 GENERAL: Awake, alert, and fully oriented, uncomfortable appearing with eyes closed HEAD: No signs of trauma EYES: PERRLA, EOMI, sclera anicteric, conjunctiva clear ENT: Auricles normal inspection, hearing grossly normal, nares patent, oropharynx clear without exudates. Moist mucosa NECK: Normal ROM, supple, no lymphadenopathy, JVD, or masses LUNGS: Breath sounds equal, clear to auscultation bilaterally. No wheezes, and no crackles HEART: Regular rate and rhythm, normal S1 and S2, no murmurs, rubs or gallops ABDOMEN: +RUQ + epigastric pain. Soft, nontender, normoactive bowel sounds. No guarding, no rebound. No masses EXTREMITIES: Normal range of motion, no edema. No clubbing or cyanosis. No cords, erythema, or tenderness NEUROLOGICAL: Cranial nerves II through XII grossly intact. Normal speech, moves all her extremities equally,, sensory intact SKIN: Warm, Dry, normal turgor, no rashes or lesions noted. CBCD WBC 6.7 K/mm3 (4.0-10.0) D 02/28/17 06:55 RBC 4.28 M/mm3 (3.60-5.2) 02/28/17 06:55 Hgb 12.4 GM/dL (10.7-15.3) D 02/28/17 06:55 Hct 37.2 % (32.4-45.2) 02/28/17 06:55 MCV 86.8 fl (80-96) 02/28/17 06:55 MCHC 33.2 g/dl (32.0-36.0) 02/28/17 06:55 RDW 12.8 % (11.6-15.6) 02/28/17 06:55 Plt Count 317 K/MM3 (134-434) 02/28/17 06:55 MPV 8.2 fl (7.5-11.1) 02/28/17 06:55 CMP Sodium 138 mmol/L (136-145) 02/28/17 06:55 Potassium 4.6 mmol/L (3.5-5.1) 02/28/17 06:55 Chloride 106 mmol/L (98-107) 02/28/17 06:55 Carbon Dioxide 24 mmol/L (21-32) 02/28/17 06:55 Anion Gap 8 (8-16) 02/28/17 06:55 BUN 5 mg/dL (7-18) L D 02/28/17 06:55 Creatinine 0.6 mg/dL (0.55-1.02) D 02/28/17 06:55 Creat Clearance w eGFR > 60 (>60) 02/28/17 06:55 Calcium 8.2 mg/dL (8.5-10.1) L 02/28/17 06:55 Total Bilirubin 1.4 mg/dL (0.2-1.0) H D 02/28/17 06:55 AST 344 U/L (15-37) H 02/28/17 06:55 ALT 360 U/L (12-78) H D 02/28/17 06:55 Alkaline Phosphatase 315 U/L (45-117) H 02/28/17 06:55 Total Protein 6.7 g/dl (6.4-8.2) D 02/28/17 06:55 Albumin 3.3 g/dl (3.4-5.0) L 02/28/17 06:55 Medical Decision Making 53 year old female, with a significant past medical history of HTN, pituitary brain tumor, and borderline diabetes, who presents to the emergency department with right upper quadrant pain intermittently for 3 months. Patient states abdominal pain began 3 months ago, pain became so intense she decided to come to the ER. She describes her abdominal pain as sharp, intermittent, localized under right rib cage. she has been getting a GI workup. Since yesterday she developed a s headache that on the right side and she does have a history of migraines. She also reports a history of pituitary adenoma but was unsure of the Exact size. She reports having her neurologic and neurosurgical care through [facility] and ddoes report having imaging completed through them. During my evaluation, she is extremely uncomfortable with a rag on her head with photophobia,, closing her eyes. Although she carries a diagnosis of pituitary adenoma, her symptoms seem more consistent with acute sstatus migrainosus Has been put on Fioricet which she can take as needed Imitrex also prescribed Patient also given morphine sulfate Patient also on Pamelor We'll have to monitor mental status ordered one-time dose of Decadron 10 mg Depakene 1 g IV piggyback can also be given for acute migraine if Decadron not effective
[2017-02-28] MEDS: valACYclovir HCL 500 MG TABLET (FP) PO SCH (16:07)
[2017-02-28] MEDS ORDERED: PT OWN MED DRAWER 7, Y5N ONE (20:47)
[2017-02-28] MEDS: NORTRIPTYLINE HCL 25 MG CAPSULE PO SCH (21:49)
[2017-02-28] MEDS ORDERED: ATORVASTATIN CA 20 MG TABLET (FP) PO SCH (22:00)
[2017-03-01] MEDS: SODIUM CHLORIDE 1,000 ML IV SCH ×2 (01:00→15:14)
[2017-03-01] MEDS ORDERED: PT OWN MED DRAWER 7, Y5N ONE ×2 (02:31→20:52)
[2017-03-01] MEDS: METRONIDAZOLE PREMIXED IVPB 250 MG/50 ML MG IVPB SCH ×3 (02:33→17:01)
[2017-03-01] MEDS: METOCLOPRAMIDE HCL INJECTION 10 MG/2 ML VIAL IVPB SCH ×4 (02:33→21:01)
[2017-03-01 08:16] LABS: BASOPHIL 0.2 % (0-2.0); MCH 28.6 pg (25.7-33.7); MCHC 32.6 g/dl (32.0-36.0); MEAN CELL VOLUME 87.7 fl (80-96); MEAN PLT VOLUME 8.1 fl (7.5-11.1); NEUTROPHILS 82.2 % (42.8-82.8); PLATELET COUNT 374 K/MM3 (134-434); RDW 12.8 % (11.6-15.6)
[2017-03-01 08:49] LABS: ALBUMIN 3.2 g/dl (3.4-5.0); ANION GAP 13 (8-16); BILIRUBIN,DIRECT 0.3 mg/dL (0.0-0.2); BILIRUBIN,TOTAL 0.6 mg/dL (0.2-1.0); CO2 21 mmol/L (21-32); CREATININE 0.7 mg/dL (0.55-1.02); GLUCOSE,RANDOM 76 mg/dL (74-106); SGOT/AST 130 U/L (15-37); SGPT/ALT 254 U/L (12-78); TOT PROT 6.6 g/dl (6.4-8.2)
[2017-03-01 08:50] LABS: ALK PHOS 277 U/L (45-117)
--- NOTE | 2017-03-01 09:04 | PN ---
Physical Exam: SUBJECTIVE: Patient seen and examined at the bedside. States her nausea and vomiting have resolved. Feels better, less pain. OBJECTIVE: For MRI/MRCP now LFTs improving Clinically improved but still having +RUQ pain/tenderness on light palpation/+ leukocytosis [facility] records are currently trying to be obtained Patient reports good effect form Dexametasone ordered by Neuro yesterday, no headaches today Received call from Dr. Franklin (covering for Dr. Knott-PCP). As per MD, patient is on the following BP meds: Amlodopine 5mg daily Avapro 300mg daily (NF at [facility], pt to use her own) Toprol 100mg daily Lipitor 80mg daily Vital Signs Period Temp Pulse Resp BP Sys/Wilkins Pulse Ox Last 24 Hr 97.5 F-98.3 F 73-105 18-20 110-150/59-93 98 GENERAL: The patient is awake, alert, and fully oriented, in no acute distress. HEAD: Normal with no signs of trauma. Reports headache today EYES: PERRL, extraocular movements intact, sclera anicteric, conjunctiva clear. No ptosis. ENT: Ears normal, nares patent, oropharynx clear without exudates, moist mucous membranes. NECK: Trachea midline, full range of motion, supple. LUNGS: Breath sounds equal, clear to auscultation bilaterally, no wheezes, no crackles, no accessory muscle use. HEART: Regular rate and rhythm, S1, S2 without murmur, rub or gallop. ABDOMEN: Soft, non distended, tender RUQ on light palpation, abd soft, hypoactive bowel sounds EXTREMITIES: 2+ pulses, warm, well-perfused, no edema. NEUROLOGICAL: Cranial nerves II through XII grossly intact. Normal speech, steady gait PSYCH: Normal mood, normal affect. SKIN: Warm, dry, normal turgor, no rashes or lesions noted Laboratory Results - last 24 hr 02/28/17 02/28/17 03/01/17 06:55 06:55 07:30 WBC 14.0 H D RBC 4.17 Hgb 11.9 Hct 36.6 MCV 87.7 MCH 28.6 MCHC 32.6 RDW 12.8 Plt Count 374 MPV 8.1 Neutrophils % 82.2 D Lymphocytes % 12.4 D Monocytes % 5.2 Eosinophils % 0.0 D Basophils % 0.2 Sodium 138 Potassium 4.6 Chloride 106 Carbon Dioxide 24 Anion Gap 8 BUN 5 L D Creatinine 0.6 D Creat Clearance w eGFR > 60 Random Glucose 96 Calcium 8.2 L Phosphorus 3.0 Magnesium 1.9 Total Bilirubin Cancelled 1.4 H D Direct Bilirubin Cancelled 1.0 H AST Cancelled 344 H ALT Cancelled 360 H D Alkaline Phosphatase Cancelled 315 H Total Protein Cancelled 6.7 D Albumin Cancelled 3.3 L Lipase 03/01/17 07:30 WBC RBC Hgb Hct MCV MCH MCHC RDW Plt Count MPV Neutrophils % Lymphocytes % Monocytes % Eosinophils % Basophils % Sodium 140 Potassium 4.8 Chloride 106 Carbon Dioxide 21 Anion Gap 13 BUN 12 D Creatinine 0.7 Creat Clearance w eGFR > 60 Random Glucose 76 D Calcium 9.0 Phosphorus Magnesium Total Bilirubin 0.6 D Direct Bilirubin 0.3 H D AST 130 H D ALT 254 H D Alkaline Phosphatase 277 H Total Protein 6.6 Albumin 3.2 L Lipase 100 Active Medications Generic Name Dose Route Start Last Admin Trade Name Freq PRN Reason Stop Dose Admin Acetaminophen/Butalbital/Caffeine 1 tablet 02/27/17 17:44 02/28/17 21:57 Fioricet - PO 1 tablet Q6H PRN Administration FEVER OR PAIN Atorvastatin Calcium 20 mg 02/28/17 22:00 02/28/17 21:49 Lipitor - PO 20 mg HS ANNMARIE Administration Sodium Chloride 1,000 mls @ 100 mls/hr 02/27/17 17:00 03/01/17 01:00 Normal Saline - IV 100 mls/hr ASDIR ANNMARIE Administration Metronidazole 250 mg in 50 mls @ 50 mls/hr 02/27/17 23:00 03/01/17 02:33 Flagyl 250mg Premixed Ivpb - IVPB 50 mls/hr Q8H-IV ANNMARIE Administration CEFTRIAXONE 1 G/50 ML PREMIX 50 mls @ 100 mls/hr 02/28/17 11:00 02/28/17 11: 02 Ceftriaxone 1 Gm-D5w Bag IVPB 100 mls/hr DAILY ANNMARIE Administration Lisinopril 20 mg 02/28/17 10:00 02/28/17 11:02 Prinivil PO 20 mg DAILY ANNMARIE Administration Meclizine HCl 25 mg 02/27/17 17:43 02/28/17 00:19 Antivert - PO 25 mg BID PRN Administration VERTIGO Metoclopramide HCl 10 mg 02/28/17 12:00 03/01/17 02:33 Reglan Injection - IVPB 10 mg Q6H-IV ANNMARIE Administration Morphine Sulfate 2 mg 02/27/17 17:02 Morphine Sulfate IVPUSH Q4H PRN PAIN Nortriptyline HCl 50 mg 02/28/17 07:59 02/28/17 21:49 Pamelor - PO 50 mg HS ANNMARIE Administration Sumatriptan Succinate 25 mg 02/27/17 19:41 Imitrex - PO Q8H PRN HEADACHE Valacyclovir HCl 1,000 mg 02/28/17 10:00 02/28/17 16:07 Valtrex - PO 1,000 mg DAILY ANNMARIE Administration ASSESSMENT/PLAN: Patient is a 52 year old female with a significant past medical history of hypertension (but did not remember which BP medication), pituitary brain tumor, migranes and borderline diabetes. She presents to the ED today with right upper quadrant intermittently for approximately 3 months. She states the pain got worse today prompting her to go the the ER. She describes her abdominal pain as sharp, intermittent, under her rib case but does not radiate. She reports that she was at work and that her abdominal pain came on suddenly. She medicated with Tylenol with no relief. Patient had a recent ultrasound done recently at [facility] and states that gallstones were seen. On today's exam, patient is clinically improved, she denies headache, no further nausea or vomiting. Imaging: Abdominal ultrasound: Cholelithiasis with trace pericholecystic fluid. Acute choleystitis cannot be excluded. The gallbladder contains multiple calculi. Hida Scan 02/28/2017: Filling of the gallbladder exclues acute cystic duct obstruction. MRI/Abdomen w/o contrast/MRCP 03/01/17: (1) Cholelithiasis. No evidence of acute jamie, No evidence of choledocholithiasis (2) Boderline mild prominent common bile duct. (3) Hepatomealy, Hepatic statosis EKG: NSR GI: Abdominal pain/Epigastric pain, improving MRI shows cholelithiasis. No evidence of acute jamie, No evidence of choledocholithiasis + RUQ tenderness persists with leukocytosis Started on clears by GI Reglan scheduled Morphine for pain control Flagyl q8, Rocephin daily to continue Blood cultures ordered/pending Hepatomegaly, acute vs. chronic Enlarged liver, hyperechoic consistent with diffuse fatty infiltration AST/ALT trending down Cardiology: Hypertension, controlled Home medications verified with pt covering PCP Amlodopine 5mg daily Avapro 300mg daily (NF at [facility], pt to use her own) Toprol 100mg daily Lipitor 80mg daily [facility] records requested Neuro: Pituitary brain tumor, chronic Patient follows neurologist at [facility] she has yearly MRI for follow up Neurology evaluated Migranes, chronic On Fiorcet Dexamethasone 10mg given by Neuro for severe headache yesterday Endocrine: Not diabetic hmga1c, 6.0 F.E.N. Fluids: NS @ 100cc/hr to continue until fully tolerating PO Electrolytes: monitor Nutrition: Clear, fat free diet today as per gi Prophylaxis: DVT: Heparin BID GI: Protonix 40mg daily Disposition. Requires inpatient hospitalization. full code. Visit type - Emergency Visit Emergency Visit: Yes ED Registration Date: 02/27/17 Care time: The patient presented to the Emergency Department on the above date and was hospitalized for further evaluation of their emergent condition. - New Patient This patient is new to me today: No - Critical Care Critical Care patient: No - Discharge Referral Referred to [facility] Med P.C.: No
--- NOTE | 2017-03-01 10:12 | PN ---
Progress Note (short form) - Note Progress Note: Neurology History of Present Illness The patient is a 53 year old female, with a significant past medical history of HTN, pituitary brain tumor, and borderline diabetes, who presents to the emergency department with right upper quadrant pain intermittently for 3 months. Patient states abdominal pain began 3 months ago, pain became so intense she decided to come to the ER. She describes her abdominal pain as sharp , intermittent, localized under right rib cage. she has been getting a GI workup. Since yesterday she developed a s headache that on the right side and she does have a history of migraines. She also reports a history of pituitary adenoma but was unsure of the Exact size. She reports having her neurologic and neurosurgical care through [facility] and ddoes report having imaging completed through them. Decadron dose given yesterday provided significant improvement. She is much better appearing today. Status migranosis stabilized. Getting ongoing GI workup. Active Medications Acetaminophen/Butalbital/Caffeine (Fioricet -) 1 tablet PO Q6H PRN PRN Reason: FEVER OR PAIN Last Admin: 02/28/17 21:57 Dose: 1 tablet Atorvastatin Calcium (Lipitor -) 20 mg PO HS ANNMARIE Last Admin: 02/28/17 21:49 Dose: 20 mg Sodium Chloride (Normal Saline -) 1,000 mls @ 100 mls/hr IV ASDIR ANNMARIE Last Admin: 03/01/17 01:00 Dose: 100 mls/hr Metronidazole (Flagyl 250mg Premixed Ivpb -) 250 mg in 50 mls @ 50 mls/hr IVPB Q8H-IV ANNMARIE Last Admin: 03/01/17 02:33 Dose: 50 mls/hr CEFTRIAXONE 1 G/50 ML PREMIX (Ceftriaxone 1 Gm-D5w Bag) 50 mls @ 100 mls/hr IVPB DAILY ANNMARIE Last Admin: 02/28/17 11:02 Dose: 100 mls/hr Lisinopril (Prinivil) 20 mg PO DAILY ANNMARIE Last Admin: 02/28/17 11:02 Dose: 20 mg Meclizine HCl (Antivert -) 25 mg PO BID PRN PRN Reason: VERTIGO Last Admin: 02/28/17 00:19 Dose: 25 mg Metoclopramide HCl (Reglan Injection -) 10 mg IVPB Q6H-IV ANNMARIE Last Admin: 03/01/17 02:33 Dose: 10 mg Morphine Sulfate (Morphine Sulfate) 2 mg IVPUSH Q4H PRN PRN Reason: PAIN Nortriptyline HCl (Pamelor -) 50 mg PO HS [facility] Last Admin: 02/28/17 21:49 Dose: 50 mg Sumatriptan Succinate (Imitrex -) 25 mg PO Q8H PRN PRN Reason: HEADACHE Valacyclovir HCl (Valtrex -) 1,000 mg PO DAILY [facility] Last Admin: 02/28/17 16:07 Dose: 1,000 mg *Physical Exam Vital Signs Period Temp Pulse Resp BP Sys/Wilkins Pulse Ox Last 24 Hr 97.5 F-98.3 F 73-105 18-20 110-150/59-93 98 GENERAL: Awake, alert, and fully oriented, more comfortable and interactive HEAD: No signs of trauma EYES: PERRLA, EOMI, sclera anicteric, conjunctiva clear ENT: Auricles normal inspection, hearing grossly normal, nares patent, oropharynx clear without exudates. Moist mucosa NECK: Normal ROM, supple, no lymphadenopathy, JVD, or masses LUNGS: Breath sounds equal, clear to auscultation bilaterally. No wheezes, and no crackles HEART: Regular rate and rhythm, normal S1 and S2, no murmurs, rubs or gallops ABDOMEN: +RUQ + epigastric pain. Soft, nontender, normoactive bowel sounds. No guarding, no rebound. No masses EXTREMITIES: Normal range of motion, no edema. No clubbing or cyanosis. No cords, erythema, or tenderness NEUROLOGICAL: Cranial nerves II through XII grossly intact. Normal speech, moves all her extremities equally,, sensory intact SKIN: Warm, Dry, normal turgor, no rashes or lesions noted. CBCD WBC 14.0 K/mm3 (4.0-10.0) H D 03/01/17 07:30 RBC 4.17 M/mm3 (3.60-5.2) 03/01/17 07:30 Hgb 11.9 GM/dL (10.7-15.3) 03/01/17 07:30 Hct 36.6 % (32.4-45.2) 03/01/17 07:30 MCV 87.7 fl (80-96) 03/01/17 07:30 MCHC 32.6 g/dl (32.0-36.0) 03/01/17 07:30 RDW 12.8 % (11.6-15.6) 03/01/17 07:30 Plt Count 374 K/MM3 (134-434) 03/01/17 07:30 MPV 8.1 fl (7.5-11.1) 03/01/17 07:30 CMP Sodium 140 mmol/L (136-145) 03/01/17 07:30 Potassium 4.8 mmol/L (3.5-5.1) 03/01/17 07:30 Chloride 106 mmol/L (98-107) 03/01/17 07:30 Carbon Dioxide 21 mmol/L (21-32) 03/01/17 07:30 Anion Gap 13 (8-16) 03/01/17 07:30 BUN 12 mg/dL (7-18) D 03/01/17 07:30 Creatinine 0.7 mg/dL (0.55-1.02) 03/01/17 07:30 Creat Clearance w eGFR > 60 (>60) 03/01/17 07:30 Calcium 9.0 mg/dL (8.5-10.1) 03/01/17 07:30 Total Bilirubin 0.6 mg/dL (0.2-1.0) D 03/01/17 07:30 AST 130 U/L (15-37) H D 03/01/17 07:30 ALT 254 U/L (12-78) H D 03/01/17 07:30 Alkaline Phosphatase 277 U/L (45-117) H 03/01/17 07:30 Total Protein 6.6 g/dl (6.4-8.2) 03/01/17 07:30 Albumin 3.2 g/dl (3.4-5.0) L 03/01/17 07:30 Medical Decision Making 53 year old female, with a significant past medical history of HTN, pituitary brain tumor, and borderline diabetes, who presents to the emergency department with right upper quadrant pain intermittently for 3 months. Patient states abdominal pain began 3 months ago, pain became so intense she decided to come to the ER. She describes her abdominal pain as sharp, intermittent, localized under right rib cage. she has been getting a GI workup. Since yesterday she developed a s headache that on the right side and she does have a history of migraines. She also reports a history of pituitary adenoma but was unsure of the Exact size. She reports having her neurologic and neurosurgical care through [facility] and does report having imaging completed through them. Headache much improved with decadron Although she carries a diagnosis of pituitary adenoma, her symptoms seem more consistent with acute status migrainosus as symptoms much improved Has been put on Fioricet which she can take as needed Imitrex also prescribed Patient also given morphine sulfate Patient also on Pamelor We'll have to monitor mental status One-time dose of Decadron 10 mg helped Can be repeated if needed but stabilized for now Continue GI work up Neurologically improved
[2017-03-01] MEDS: CEFTRIAXONE 1 G/50 ML PREMIX 50 ML IVPB SCH (10:37)
[2017-03-01] MEDS: LISINOPRIL 10 MG TABLET (FP) PO SCH (10:38)
[2017-03-01] MEDS: valACYclovir HCL 500 MG TABLET (FP) PO SCH (10:39)
--- NOTE | 2017-03-01 11:11 | PN ---
Progress Note, Physician History of Present Illness: Feels better today, however, RUQ is type soldering machine tender to palpation. Ambulating. HIDA negative. MR was done this AM - Current Medication List Current Medications: Active Medications Acetaminophen/Butalbital/Caffeine (Fioricet -) 1 tablet PO Q6H PRN PRN Reason: FEVER OR PAIN Last Admin: 02/28/17 21:57 Dose: 1 tablet Atorvastatin Calcium (Lipitor -) 20 mg PO HS ANNMARIE Last Admin: 02/28/17 21:49 Dose: 20 mg Sodium Chloride (Normal Saline -) 1,000 mls @ 100 mls/hr IV ASDIR ANNMARIE Last Admin: 03/01/17 01:00 Dose: 100 mls/hr Metronidazole (Flagyl 250mg Premixed Ivpb -) 250 mg in 50 mls @ 50 mls/hr IVPB Q8H-IV ANNMARIE Last Admin: 03/01/17 10:37 Dose: 50 mls/hr CEFTRIAXONE 1 G/50 ML PREMIX (Ceftriaxone 1 Gm-D5w Bag) 50 mls @ 100 mls/hr IVPB DAILY ANNMARIE Last Admin: 03/01/17 10:37 Dose: 100 mls/hr Lisinopril (Prinivil) 20 mg PO DAILY ANNMARIE Last Admin: 03/01/17 10:38 Dose: 20 mg Meclizine HCl (Antivert -) 25 mg PO BID PRN PRN Reason: VERTIGO Last Admin: 02/28/17 00:19 Dose: 25 mg Metoclopramide HCl (Reglan Injection -) 10 mg IVPB Q6H-IV ANNMARIE Last Admin: 03/01/17 10:38 Dose: 10 mg Morphine Sulfate (Morphine Sulfate) 2 mg IVPUSH Q4H PRN PRN Reason: PAIN Nortriptyline HCl (Pamelor -) 50 mg PO HS [facility] Last Admin: 02/28/17 21:49 Dose: 50 mg Sumatriptan Succinate (Imitrex -) 25 mg PO Q8H PRN PRN Reason: HEADACHE Valacyclovir HCl (Valtrex -) 1,000 mg PO DAILY [facility] Last Admin: 03/01/17 10:39 Dose: 1,000 mg - Objective Vital Signs: Vital Signs Temperature 97.5 F L 03/01/17 05:00 Pulse Rate 73 03/01/17 05:00 Respiratory Rate 18 03/01/17 05:00 Blood Pressure 110/59 03/01/17 05:00 O2 Sat by Pulse Oximetry (%) 98 02/28/17 19:55 Constitutional: Yes: No Distress, Calm Eyes: Yes: Conjunctiva Clear HENT: Yes: Atraumatic Neck: Yes: Supple Cardiovascular: Yes: Regular Rate and Rhythm Respiratory: Yes: Regular Gastrointestinal: Yes: Normal Bowel Sounds, Soft, Tenderness (RUQ), Other ( voluntary guarding) Neurological: Yes: Alert, Oriented Psychiatric: Yes: Alert Labs: CBC, BMP 03/01/17 07:30 03/01/17 07:30 INR, PTT INR 1.07 (0.82-1.09) 02/28/17 06:55 CBCD WBC 14.0 K/mm3 (4.0-10.0) H D 03/01/17 07:30 RBC 4.17 M/mm3 (3.60-5.2) 03/01/17 07:30 Hgb 11.9 GM/dL (10.7-15.3) 03/01/17 07:30 Hct 36.6 % (32.4-45.2) 03/01/17 07:30 MCV 87.7 fl (80-96) 03/01/17 07:30 MCHC 32.6 g/dl (32.0-36.0) 03/01/17 07:30 RDW 12.8 % (11.6-15.6) 03/01/17 07:30 Plt Count 374 K/MM3 (134-434) 03/01/17 07:30 MPV 8.1 fl (7.5-11.1) 03/01/17 07:30 CMP Sodium 140 mmol/L (136-145) 03/01/17 07:30 Potassium 4.8 mmol/L (3.5-5.1) 03/01/17 07:30 Chloride 106 mmol/L (98-107) 03/01/17 07:30 Carbon Dioxide 21 mmol/L (21-32) 03/01/17 07:30 Anion Gap 13 (8-16) 03/01/17 07:30 BUN 12 mg/dL (7-18) D 03/01/17 07:30 Creatinine 0.7 mg/dL (0.55-1.02) 03/01/17 07:30 Creat Clearance w eGFR > 60 (>60) 03/01/17 07:30 Calcium 9.0 mg/dL (8.5-10.1) 03/01/17 07:30 Total Bilirubin 0.6 mg/dL (0.2-1.0) D 03/01/17 07:30 AST 130 U/L (15-37) H D 03/01/17 07:30 ALT 254 U/L (12-78) H D 03/01/17 07:30 Alkaline Phosphatase 277 U/L (45-117) H 03/01/17 07:30 Total Protein 6.6 g/dl (6.4-8.2) 03/01/17 07:30 Albumin 3.2 g/dl (3.4-5.0) L 03/01/17 07:30 - ....Imaging MRI: Pending Other: Report Reviewed (HIDA) Problem List - Problems (1) Transaminasemia Code(s): R74.0 - NONSPEC ELEV OF LEVELS OF TRANSAMNS & LACTIC ACID DEHYDRGNSE (2) Cholestasis Code(s): K83.1 - OBSTRUCTION OF BILE DUCT (3) Acute cholecystitis Code(s): K81.0 - ACUTE CHOLECYSTITIS Assessment/Plan Cholecystitis ? Chroic cholelithiasis hepatic profile better Agree with IVF, PO hydration, antiemetics, pain mamagement and Abx MRCP findings Surgery evaluation Clear, fat free diet today
--- NOTE | 2017-03-01 13:38 | PN ---
Progress Note (short form) - Note Progress Note: surgery HIDA negative. MRCP with enlarged cbd and normal gb except stones. afebrile abd- Laboratory Tests 03/01/17 03/01/17 07:30 07:30 WBC 14.0 H D Total Bilirubin 0.6 D Direct Bilirubin 0.3 H D AST 130 H D ALT 254 H D Alkaline Phosphatase 277 H Plan- elevated lfts, leukocytosis, dilated cbd- concern for choledocholithiasis. MRI, HIDA, and u/s r/u acute cholecystitis as source of symptoms or liver function test abnormality. Consider ERCP
--- NOTE | 2017-03-01 14:55 | PN ---
Physical Exam: SUBJECTIVE: Patient seen and examined OBJECTIVE: Vital Signs Period Temp Pulse Resp BP Sys/Wilkins Pulse Ox Last 24 Hr 97.5 F-98.3 F 73-105 18-20 110-154/59-81 98-98 GENERAL: The patient is awake, alert, and fully oriented, in no acute distress. HEAD: Normal with no signs of trauma. EYES: PERRL, extraocular movements intact, sclera anicteric, conjunctiva clear. No ptosis. ENT: Ears normal, nares patent, oropharynx clear without exudates, moist mucous membranes. NECK: Trachea midline, full range of motion, supple. LUNGS: Breath sounds equal, clear to auscultation bilaterally, no wheezes, no crackles, no accessory muscle use. HEART: Regular rate and rhythm, S1, S2 without murmur, rub or gallop. ABDOMEN: Soft, nontender, nondistended, normoactive bowel sounds, no guarding, no rebound, no hepatosplenomegaly, no masses. EXTREMITIES: 2+ pulses, warm, well-perfused, no edema. NEUROLOGICAL: Cranial nerves II through XII grossly intact. Normal speech, gait not observed. PSYCH: Normal mood, normal affect. SKIN: Warm, dry, normal turgor, no rashes or lesions noted Laboratory Results - last 24 hr 03/01/17 03/01/17 07:30 07:30 WBC 14.0 H D RBC 4.17 Hgb 11.9 Hct 36.6 MCV 87.7 MCH 28.6 MCHC 32.6 RDW 12.8 Plt Count 374 MPV 8.1 Neutrophils % 82.2 D Lymphocytes % 12.4 D Monocytes % 5.2 Eosinophils % 0.0 D Basophils % 0.2 Sodium 140 Potassium 4.8 Chloride 106 Carbon Dioxide 21 Anion Gap 13 BUN 12 D Creatinine 0.7 Creat Clearance w eGFR > 60 Random Glucose 76 D Calcium 9.0 Total Bilirubin 0.6 D Direct Bilirubin 0.3 H D AST 130 H D ALT 254 H D Alkaline Phosphatase 277 H Total Protein 6.6 Albumin 3.2 L Lipase 100 Active Medications Generic Name Dose Route Start Last Admin Trade Name Freq PRN Reason Stop Dose Admin Acetaminophen/Butalbital/Caffeine 1 tablet 02/27/17 17:44 02/28/17 21:57 Fioricet - PO 1 tablet Q6H PRN Administration FEVER OR PAIN Atorvastatin Calcium 80 mg 11/17/17 22:00 Lipitor - PO HS ANNMARIE Sodium Chloride 1,000 mls @ 100 mls/hr 02/27/17 17:00 03/01/17 01:00 Normal Saline - IV 100 mls/hr ASDIR ANNMARIE Administration Metronidazole 250 mg in 50 mls @ 50 mls/hr 02/27/17 23:00 03/01/17 10:37 Flagyl 250mg Premixed Ivpb - IVPB 50 mls/hr Q8H-IV ANNMARIE Administration CEFTRIAXONE 1 G/50 ML PREMIX 50 mls @ 100 mls/hr 02/28/17 11:00 03/01/17 10: 37 Ceftriaxone 1 Gm-D5w Bag IVPB 100 mls/hr DAILY ANNMARIE Administration Lisinopril 20 mg 02/28/17 10:00 03/01/17 10:38 Prinivil PO 20 mg DAILY ANNMARIE Administration Meclizine HCl 25 mg 02/27/17 17:43 02/28/17 00:19 Antivert - PO 25 mg BID PRN Administration VERTIGO Metoclopramide HCl 10 mg 02/28/17 12:00 03/01/17 10:38 Reglan Injection - IVPB 10 mg Q6H-IV ANNMARIE Administration Metoprolol Succinate 100 mg 03/01/17 15:00 Toprol Xl - PO DAILY ANNMARIE Morphine Sulfate 2 mg 02/27/17 17:02 Morphine Sulfate IVPUSH Q4H PRN PAIN Non-Formulary Medication 1 each 03/01/17 15:00 Patient's Own Med PO DAILY ANNMARIE Nortriptyline HCl 50 mg 02/28/17 07:59 02/28/17 21:49 Pamelor - PO 50 mg HS ANNMARIE Administration Sumatriptan Succinate 25 mg 02/27/17 19:41 Imitrex - PO Q8H PRN HEADACHE Valacyclovir HCl 1,000 mg 02/28/17 10:00 03/01/17 10:39 Valtrex - PO 1,000 mg DAILY ANNMARIE Administration ASSESSMENT/PLAN:
[2017-03-01] MEDS: METOPROLOL SUCCINATE 100 MG TAB.SR.24H (FP) PO SCH (15:16)
[2017-03-01] MEDS: ATORVASTATIN CA 80 MG TABLET (FP) PO SCH (21:02)
[2017-03-01] MEDS: NORTRIPTYLINE HCL 25 MG CAPSULE PO SCH (21:03)
[2017-03-02] MEDS: SODIUM CHLORIDE 1,000 ML IV SCH (01:00)
[2017-03-02] MEDS ORDERED: PT OWN MED DRAWER 7, Y5N ONE ×4 (02:31→21:01)
[2017-03-02] MEDS: METRONIDAZOLE PREMIXED IVPB 250 MG/50 ML MG IVPB SCH ×2 (02:35→09:33)
[2017-03-02] MEDS: METOCLOPRAMIDE HCL INJECTION 10 MG/2 ML VIAL IVPB SCH ×4 (02:35→21:09)
[2017-03-02 07:46] LABS: BASOPHIL 0.8 % (0-2.0); MCHC 33.1 g/dl (32.0-36.0); MEAN CELL VOLUME 87.6 fl (80-96); NEUTROPHILS 54.9 % (42.8-82.8); PLATELET COUNT 332 K/MM3 (134-434); RDW 13.1 % (11.6-15.6); WHITE BLOOD COUNT 10.7 K/mm3 (4.0-10.0)
[2017-03-02 08:59] LABS: ALBUMIN 3.1 g/dl (3.4-5.0); ANION GAP 8 (8-16); BILIRUBIN,DIRECT 0.2 mg/dL (0.0-0.2); BILIRUBIN,TOTAL 0.3 mg/dL (0.2-1.0); CALCIUM 8.2 mg/dL (8.5-10.1); CO2 23 mmol/L (21-32); CREATININE 0.7 mg/dL (0.55-1.02); GLUCOSE,RANDOM 89 mg/dL (74-106); SGOT/AST 84 U/L (15-37); TOT PROT 6.4 g/dl (6.4-8.2)
[2017-03-02 09:06] LABS: ALK PHOS 236 U/L (45-117); SGPT/ALT 195 U/L (12-78)
[2017-03-02] MEDS: CEFTRIAXONE 1 G/50 ML PREMIX 50 ML IVPB SCH ×2 (09:33→17:20)
[2017-03-02] MEDS: LOSARTAN POTASSIUM 100 MG TABLET PO SCH (09:34)
[2017-03-02] MEDS: METOPROLOL SUCCINATE 100 MG TAB.SR.24H (FP) PO SCH (09:35)
[2017-03-02] MEDS: LISINOPRIL 10 MG TABLET (FP) PO SCH (09:35)
[2017-03-02] MEDS: valACYclovir HCL 500 MG TABLET (FP) PO SCH (10:55)
--- NOTE | 2017-03-02 11:29 | PN ---
Progress Note (short form) - Note Progress Note: Neurology History of Present Illness The patient is a 53 year old female, with a significant past medical history of HTN, pituitary brain tumor, and borderline diabetes, who presents to the emergency department with right upper quadrant pain intermittently for 3 months. Patient states abdominal pain began 3 months ago, pain became so intense she decided to come to the ER. She describes her abdominal pain as sharp , intermittent, localized under right rib cage. she has been getting a GI workup. She developed a headache on the right side and she does have a history of migraines. She also reports a history of pituitary adenoma but was unsure of the Exact size. She reports having her neurologic and neurosurgical care through [facility] and ddoes report having imaging completed through them. Decadron dose given and provided significant improvement. She is much better appearing again today. Status migranosis stabilized. Getting ongoing GI workup. Frustrated awaiting intervention of cholecystitis. Neurologically stable without complaints today. Active Medications Acetaminophen/Butalbital/Caffeine (Fioricet -) 1 tablet PO Q6H PRN PRN Reason: FEVER OR PAIN Last Admin: 02/28/17 21:57 Dose: 1 tablet Atorvastatin Calcium (Lipitor -) 80 mg PO HS ANNMARIE Last Admin: 03/01/17 21:02 Dose: 80 mg Sodium Chloride (Normal Saline -) 1,000 mls @ 100 mls/hr IV ASDIR ANNMARIE Last Admin: 03/02/17 01:00 Dose: 100 mls/hr Metronidazole (Flagyl 250mg Premixed Ivpb -) 250 mg in 50 mls @ 50 mls/hr IVPB Q8H-IV ANNMARIE Last Admin: 03/02/17 09:33 Dose: 50 mls/hr CEFTRIAXONE 1 G/50 ML PREMIX (Ceftriaxone 1 Gm-D5w Bag) 50 mls @ 100 mls/hr IVPB DAILY ANNMARIE Last Admin: 03/02/17 09:33 Dose: 100 mls/hr Lisinopril (Prinivil) 20 mg PO DAILY ANNMARIE Last Admin: 03/02/17 09:35 Dose: 20 mg Losartan Potassium (Losartan Potassium) 100 mg PO DAILY ANNMARIE Last Admin: 03/02/17 09:34 Dose: 100 mg Meclizine HCl (Antivert -) 25 mg PO BID PRN PRN Reason: VERTIGO Last Admin: 02/28/17 00:19 Dose: 25 mg Metoclopramide HCl (Reglan Injection -) 10 mg IVPB Q6H-IV [facility] Last Admin: 03/02/17 08:35 Dose: 10 mg Metoprolol Succinate (Toprol Xl -) 100 mg PO DAILY [facility] Last Admin: 03/02/17 09:35 Dose: 100 mg Morphine Sulfate (Morphine Sulfate) 2 mg IVPUSH Q4H PRN PRN Reason: PAIN Nortriptyline HCl (Pamelor -) 50 mg PO HS [facility] Last Admin: 03/01/17 21:03 Dose: 50 mg Sumatriptan Succinate (Imitrex -) 25 mg PO Q8H PRN PRN Reason: HEADACHE Valacyclovir HCl (Valtrex -) 1,000 mg PO DAILY [facility] Last Admin: 03/02/17 10:55 Dose: 1,000 mg *Physical Exam Vital Signs Temperature 97.5 F L 03/02/17 09:53 Pulse Rate 70 03/02/17 09:53 Respiratory Rate 18 03/02/17 09:53 Blood Pressure 147/88 03/02/17 09:53 O2 Sat by Pulse Oximetry (%) 98 03/02/17 09:00 GENERAL: Awake, alert, and fully oriented, more comfortable and interactive HEAD: No signs of trauma EYES: PERRLA, EOMI, sclera anicteric, conjunctiva clear ENT: Auricles normal inspection, hearing grossly normal, nares patent, oropharynx clear without exudates. Moist mucosa NECK: Normal ROM, supple, no lymphadenopathy, JVD, or masses LUNGS: Breath sounds equal, clear to auscultation bilaterally. No wheezes, and no crackles HEART: Regular rate and rhythm, normal S1 and S2, no murmurs, rubs or gallops ABDOMEN: +RUQ + epigastric pain. Soft, nontender, normoactive bowel sounds. No guarding, no rebound. No masses EXTREMITIES: Normal range of motion, no edema. No clubbing or cyanosis. No cords, erythema, or tenderness NEUROLOGICAL: Cranial nerves II through XII grossly intact. Normal speech, moves all her extremities equally,, sensory intact SKIN: Warm, Dry, normal turgor, no rashes or lesions noted. CBCD WBC 10.7 K/mm3 (4.0-10.0) H 03/02/17 06:45 RBC 3.97 M/mm3 (3.60-5.2) 03/02/17 06:45 Hgb 11.5 GM/dL (10.7-15.3) 03/02/17 06:45 Hct 34.8 % (32.4-45.2) 03/02/17 06:45 MCV 87.6 fl (80-96) 03/02/17 06:45 MCHC 33.1 g/dl (32.0-36.0) 03/02/17 06:45 RDW 13.1 % (11.6-15.6) 03/02/17 06:45 Plt Count 332 K/MM3 (134-434) 03/02/17 06:45 MPV 8.0 fl (7.5-11.1) 03/02/17 06:45 CMP Sodium 140 mmol/L (136-145) 03/02/17 06:45 Potassium 4.1 mmol/L (3.5-5.1) 03/02/17 06:45 Chloride 109 mmol/L (98-107) H 03/02/17 06:45 Carbon Dioxide 23 mmol/L (21-32) 03/02/17 06:45 Anion Gap 8 (8-16) 03/02/17 06:45 BUN 12 mg/dL (7-18) 03/02/17 06:45 Creatinine 0.7 mg/dL (0.55-1.02) 03/02/17 06:45 Creat Clearance w eGFR > 60 (>60) 03/02/17 06:45 Calcium 8.2 mg/dL (8.5-10.1) L 03/02/17 06:45 Total Bilirubin 0.3 mg/dL (0.2-1.0) D 03/02/17 06:45 AST 84 U/L (15-37) H D 03/02/17 06:45 ALT 195 U/L (12-78) H D 03/02/17 06:45 Alkaline Phosphatase 236 U/L (45-117) H 03/02/17 06:45 Total Protein 6.4 g/dl (6.4-8.2) 03/02/17 06:45 Albumin 3.1 g/dl (3.4-5.0) L 03/02/17 06:45 Medical Decision Making 53 year old female, with a significant past medical history of HTN, pituitary brain tumor, and borderline diabetes, who presents to the emergency department with right upper quadrant pain intermittently for 3 months. Patient states abdominal pain began 3 months ago, pain became so intense she decided to come to the ER. She describes her abdominal pain as sharp, intermittent, localized under right rib cage. she has been getting a GI workup. Since yesterday she developed a s headache that on the right side and she does have a history of migraines. She also reports a history of pituitary adenoma but was unsure of the Exact size. She reports having her neurologic and neurosurgical care through [facility] and does report having imaging completed through them. Headache much improved with decadron Although she carries a diagnosis of pituitary adenoma, her symptoms seem more consistent with acute status migrainosus as symptoms much improved Has been put on Fioricet which she can take as needed Imitrex also prescribed Patient also on Pamelor One-time dose of Decadron 10 mg broke migraine Can be repeated if needed but stabilized for now Continue GI work up Neurologically improved
--- NOTE | 2017-03-02 11:41 | PN ---
GI Progress Note Subjective: GI: Dr. Vega covering for Dr. Greenwood who will resume coverage 03/04 Called by nurse: ms. Mcgowan upset and wants to go home. Frustrated with length of stay MRI yesterday failed to reveal CBD stones. CBD 6mm HIDA was negative for cystic duct obstruction LFTs trnding down RUQ pain has improved - Objective Vital Signs: Vital Signs Temperature 97.5 F L 03/02/17 09:53 Pulse Rate 70 03/02/17 09:53 Respiratory Rate 18 03/02/17 09:53 Blood Pressure 147/88 03/02/17 09:53 O2 Sat by Pulse Oximetry (%) 98 03/02/17 09:00 Constitutional: Calm Eyes: No: Sclera Icterus Cardiovascular: Yes: Regular Rate and Rhythm Respiratory: Yes: CTA Bilaterally Gastrointestinal Inspection: No: Distention, Scars ...Auscultate: Yes: Normoactive Bowel Sounds ...Palpate: Yes: Tenderness (Mile RUQ ttp). No: Guarding ...Percussion: No: Tympanitic Edema: No (No LE edema) Neurological: Yes: Alert, Oriented Labs: CBC, BMP 03/02/17 06:45 03/02/17 06:45 INR, PTT INR 1.07 (0.82-1.09) 02/28/17 06:55 Hepatic Panel Total Bilirubin 0.3 mg/dL (0.2-1.0) D 03/02/17 06:45 Direct Bilirubin 0.2 mg/dL (0.0-0.2) D 03/02/17 06:45 AST 84 U/L (15-37) H D 03/02/17 06:45 ALT 195 U/L (12-78) H D 03/02/17 06:45 Alkaline Phosphatase 236 U/L (45-117) H 03/02/17 06:45 Albumin 3.1 g/dl (3.4-5.0) L 03/02/17 06:45 Problem List - Problems (1) Cholelithiasis Assessment/Plan: With suspected passage of CBD stones given LFT's that are trending down HIDA Neg I explained the above to Ms. Mcgowan and explained that she should have her GB out prior to discharge to prevent further episodes. The only question is if she will need further eval of her biliary tract prior to cholecystectomy via ERCP. I explained this to her. Discussed potential risks of the procedure like but not limited to bleeding, perforation requiring surgery to repair, infection, sedation medciation effects, pancreatitis (5-10% of the cases) all of which could be potentially life threatening. She has agreed to the procedure if clinically indicated. Monitor LFTs. ? if ceftriaxone contributing to persistent ALP elevation IV Abx Surgical follow-up Dr. Greenwood to reassess on Saturday regarding course from GI standpoint. I let Dr. Martinez, biliary endoscopist, be aware of the case as well Code(s): K80.20 - CALCULUS OF GALLBLADDER W/O CHOLECYSTITIS W/O OBSTRUCTION
[2017-03-02] MEDS ORDERED: hydrALAZINE HCL 25 MG TABLET (FP) PO ONE (16:53)
[2017-03-02] MEDS ORDERED: hydrALAZINE HCL 10 MG TABLET PO SCH (17:00)
[2017-03-02] MEDS ORDERED: LEVOFLOXACIN 500 MG IVPB 500 MG/100 ML BAG IVPB ONE (17:07)
--- NOTE | 2017-03-02 17:16 | PN ---
Physical Exam: SUBJECTIVE: Patient seen and examined. She says her pain is better than admission, explained why she should stay, she understands and will stay. OBJECTIVE: Vital Signs Period Temp Pulse Resp BP Sys/Wilkins Pulse Ox Last 24 Hr 97.5 F-97.9 F 65-74 18-20 120-174/75-88 98-98 PE Neuro: alert, awake, cn 2-12intact Pulm: CTAB CV: s1 s2 rrr no mrg Abd: RUQ acute point tenderness to palpation, + bs, no distention Ext: no le edema, warm + DP pulses Laboratory Results - last 24 hr 03/02/17 03/02/17 06:45 06:45 WBC 10.7 H RBC 3.97 Hgb 11.5 Hct 34.8 MCV 87.6 MCH 29.0 MCHC 33.1 RDW 13.1 Plt Count 332 MPV 8.0 Neutrophils % 54.9 D Lymphocytes % 33.3 D Monocytes % 7.0 Eosinophils % 4.0 D Basophils % 0.8 D Sodium 140 Potassium 4.1 Chloride 109 H Carbon Dioxide 23 Anion Gap 8 BUN 12 Creatinine 0.7 Creat Clearance w eGFR > 60 Random Glucose 89 Calcium 8.2 L Total Bilirubin 0.3 D Direct Bilirubin 0.2 D AST 84 H D ALT 195 H D Alkaline Phosphatase 236 H Total Protein 6.4 Albumin 3.1 L Lipase 160 Active Medications Generic Name Dose Route Start Last Admin Trade Name Freq PRN Reason Stop Dose Admin Acetaminophen/Butalbital/Caffeine 1 tablet 02/27/17 17:44 02/28/17 21:57 Fioricet - PO 1 tablet Q6H PRN Administration FEVER OR PAIN Atorvastatin Calcium 80 mg 03/01/17 22:00 03/01/17 21:02 Lipitor - PO 80 mg HS ANNMARIE Administration Hydralazine HCl 25 mg 03/03/17 10:00 Apresoline - PO BID ANNMARIE Dextrose/Sodium Chloride 1,000 mls @ 100 mls/hr 03/04/17 00:01 D5-1/2ns - IV ASDIR ANNMARIE Metronidazole 500 mg in 100 mls @ 100 mls/hr 03/02/17 17:15 Flagyl 500mg Premixed Ivpb - IVPB Q8H-IV ANNMARIE CEFTRIAXONE 1 G/50 ML PREMIX 50 mls @ 100 mls/hr 03/02/17 17:15 Ceftriaxone 1 Gm-D5w Bag IVPB DAILY ANNMARIE Labetalol HCl 200 mg 03/02/17 22:00 Normodyne - PO BID ANNMARIE Losartan Potassium 100 mg 03/01/17 15:19 03/02/17 09:34 Losartan Potassium PO 100 mg DAILY ANNMARIE Administration Meclizine HCl 25 mg 02/27/17 17:43 02/28/17 00:19 Antivert - PO 25 mg BID PRN Administration VERTIGO Metoclopramide HCl 10 mg 02/28/17 12:00 03/02/17 15:29 Reglan Injection - IVPB 10 mg Q6H-IV ANNMARIE Administration Morphine Sulfate 2 mg 02/27/17 17:02 Morphine Sulfate IVPUSH Q4H PRN PAIN Nortriptyline HCl 50 mg 02/28/17 07:59 03/01/17 21:03 Pamelor - PO 50 mg HS ANNMARIE Administration Sumatriptan Succinate 25 mg 02/27/17 19:41 Imitrex - PO Q8H PRN HEADACHE Valacyclovir HCl 1,000 mg 02/28/17 10:00 03/02/17 10:55 Valtrex - PO 1,000 mg DAILY ANNMARIE Administration Imaging: MRI 03/01 failed to reveal CBD stones. CBD 6mm HIDA was negative for cystic duct obstruction Assessment: 52 year old female with pmhx of HTN (no meds per [facility] pt states she is on meds, but does not remember which medication), pituitary brain tumor, migraines and borderline diabetes admitted with RUQ pain. Plan: 1. Cholelithiasis with acute cholecystitis - MRI negative for CBD stones now - Stone likely to have passed, LFT's down trending - Continue ceftriaxone for now, levaquin with 30% resistance to ecoli here - Will need cholecystectomy prior to discharge and possible ERCP first - Increase flagyl to 500mg q8 2. Elevated LFTs - Decreasing, will monitor 3. Acute migraine - Improved with decadron - Continue pamelor, imitrex, fioricet 4. HTN urgency - Hydralazine 25mg BID, first dose now - Stop metoprolol, start labetalol 200mg BID - Stop lisinopril - Continue losartan 100mg daily 5. Pituitary brain tumor, chronic - Patient follows neurologist at [facility] to continue Visit type - Emergency Visit Emergency Visit: Yes ED Registration Date: 02/27/17 Care time: The patient presented to the Emergency Department on the above date and was hospitalized for further evaluation of their emergent condition. - New Patient This patient is new to me today: Yes Date on this admission: 03/02/17 - Critical Care Critical Care patient: No
[2017-03-02] MEDS: METRONIDAZOLE 500 MG PREMIXED 500 MG/100 ML MG IVPB SCH ×2 (17:21→18:11)
[2017-03-02] MEDS: ATORVASTATIN CA 80 MG TABLET (FP) PO SCH (21:09)
[2017-03-02] MEDS: LABETALOL HCL 200 MG TABLET (FP) PO SCH (21:09)
[2017-03-02] MEDS: NORTRIPTYLINE HCL 25 MG CAPSULE PO SCH (21:10)
[2017-03-03] MEDS: METRONIDAZOLE 500 MG PREMIXED 500 MG/100 ML MG IVPB SCH ×3 (01:50→17:55)
[2017-03-03] MEDS ORDERED: PT OWN MED DRAWER 7, Y5N ONE ×5 (01:58→21:04)
[2017-03-03] MEDS: SUMAtriptan SUCCINATE 25 MG TABLET PO PRN ×3 (01:59→21:10)
[2017-03-03] MEDS: METOCLOPRAMIDE HCL INJECTION 10 MG/2 ML VIAL IVPB SCH ×4 (03:08→21:10)
[2017-03-03] MEDS: SODIUM CHLORIDE 1,000 ML IV SCH (06:08)
--- NOTE | 2017-03-03 08:42 | PN ---
Progress Note (short form) - Note Progress Note: surgery pt seen and examined labs pending still with unexplained ruq pain abd- soft, ruq tenderenss Plan- follow lfts. poss ercp. surgery when duct proven clear by procedure or labs.
[2017-03-03 08:46] LABS: BASOPHIL 0.6 % (0-2.0); EOSINOPHIL 4.6 % (0-4.5); MCH 28.9 pg (25.7-33.7); MCHC 33.3 g/dl (32.0-36.0); MEAN CELL VOLUME 86.7 fl (80-96); MEAN PLT VOLUME 7.9 fl (7.5-11.1); NEUTROPHILS 61.8 % (42.8-82.8); PLATELET COUNT 293 K/MM3 (134-434); RDW 12.9 % (11.6-15.6); WHITE BLOOD COUNT 8.6 K/mm3 (4.0-10.0)
[2017-03-03 09:13] LABS: SGOT/AST 55 U/L (15-37)
[2017-03-03 09:14] LABS: INR 1.05 (0.82-1.09); PROTHROMBIN TIME (PATIENT) 11.9 SEC (9.98-11.88)
[2017-03-03 09:16] LABS: ALK PHOS 224 U/L (45-117); ANION GAP 11 (8-16); BILIRUBIN,DIRECT 0.2 mg/dL (0.0-0.2); BILIRUBIN,TOTAL 0.5 mg/dL (0.2-1.0); CALCIUM 8.2 mg/dL (8.5-10.1); CO2 24 mmol/L (21-32); CREATININE 0.7 mg/dL (0.55-1.02); GLUCOSE,RANDOM 87 mg/dL (74-106); SGPT/ALT 144 U/L (12-78); TOT PROT 6.3 g/dl (6.4-8.2)
[2017-03-03 09:17] LABS: ACTIVATED PTT 30.3 SECONDS (26.9-34.4)
[2017-03-03] MEDS ORDERED: cefTRIAXone 1 GM/50 ML BAG (PRE-DOCKED) IVPB SCH (10:00)
[2017-03-03] MEDS: LOSARTAN POTASSIUM 100 MG TABLET PO SCH (10:21)
[2017-03-03] MEDS: valACYclovir HCL 500 MG TABLET (FP) PO SCH (10:21)
[2017-03-03] MEDS: hydrALAZINE HCL 25 MG TABLET (FP) PO SCH ×2 (10:22→21:10)
[2017-03-03] MEDS: CEFTRIAXONE 1 G/50 ML PREMIX 50 ML IVPB SCH (11:24)
--- NOTE | 2017-03-03 13:01 | PN ---
Physical Exam: SUBJECTIVE: Patient seen and examined. She states her abdominal pain has improved, she is no longer grimacing. BP improved OBJECTIVE: Vital Signs Period Temp Pulse Resp BP Sys/Wilkins Pulse Ox Last 24 Hr 97.7 F-98.1 F 71-74 18-20 134-184/70-104 97 PE Neuro: alert, awake, cn 2-12intact Pulm: CTAB CV: s1 s2 rrr no mrg Abd: RUQ tenderness- Improved, + bs, no distention Ext: no le edema, warm + DP pulses Laboratory Results - last 24 hr 03/03/17 03/03/17 03/03/17 07:30 07:30 07:30 WBC 8.6 RBC 4.02 Hgb 11.6 Hct 34.8 MCV 86.7 MCH 28.9 MCHC 33.3 RDW 12.9 Plt Count 293 MPV 7.9 Neutrophils % 61.8 Lymphocytes % 24.5 D Monocytes % 8.5 Eosinophils % 4.6 H Basophils % 0.6 PT with INR 11.90 H INR 1.05 PTT (Actin FS) 30.3 Sodium 140 Potassium 4.0 Chloride 105 Carbon Dioxide 24 Anion Gap 11 BUN 8 D Creatinine 0.7 Creat Clearance w eGFR > 60 Random Glucose 87 Calcium 8.2 L Total Bilirubin 0.5 D Direct Bilirubin 0.2 AST 55 H D ALT 144 H D Alkaline Phosphatase 224 H Total Protein 6.3 L Albumin 3.0 L Lipase 129 Blood Type Antibody Screen Active Medications Generic Name Dose Route Start Last Admin Trade Name Adolfo PRN Reason Stop Dose Admin Atorvastatin Calcium 80 mg 03/01/17 22:00 03/02/17 21:09 Lipitor - PO 80 mg HS ANNMARIE Administration Hydralazine HCl 25 mg 03/03/17 10:00 03/03/17 10:22 Apresoline - PO 25 mg BID ANNMARIE Administration Dextrose/Sodium Chloride 1,000 mls @ 100 mls/hr 03/04/17 00:01 D5-1/2ns - IV ASDIR ANNMARIE Metronidazole 500 mg in 100 mls @ 100 mls/hr 03/02/17 17:15 03/03/17 11:20 Flagyl 500mg Premixed Ivpb - IVPB 100 mls/hr Q8H-IV ANNMARIE Administration CEFTRIAXONE 1 G/50 ML PREMIX 50 mls @ 100 mls/hr 03/02/17 17:15 03/03/17 11: 24 Ceftriaxone 1 Gm-D5w Bag IVPB 100 mls/hr DAILY ANNMARIE Administration Labetalol HCl 200 mg 03/02/17 22:00 03/02/17 21:09 Normodyne - PO 200 mg BID ANNMARIE Administration Losartan Potassium 100 mg 03/01/17 15:19 03/03/17 10:21 Losartan Potassium PO 100 mg DAILY ANNMARIE Administration Meclizine HCl 25 mg 02/27/17 17:43 02/28/17 00:19 Antivert - PO 25 mg BID PRN Administration VERTIGO Metoclopramide HCl 10 mg 02/28/17 12:00 03/03/17 10:22 Reglan Injection - IVPB 10 mg Q6H-IV ANNMARIE Administration Morphine Sulfate 2 mg 02/27/17 17:02 Morphine Sulfate IVPUSH Q4H PRN PAIN Nortriptyline HCl 50 mg 02/28/17 07:59 03/02/17 21:10 Pamelor - PO 50 mg HS ANNMARIE Administration Sumatriptan Succinate 25 mg 02/27/17 19:41 03/03/17 01:59 Imitrex - PO 25 mg Q8H PRN Administration HEADACHE Valacyclovir HCl 1,000 mg 02/28/17 10:00 03/03/17 10:21 Valtrex - PO 1,000 mg DAILY ANNMARIE Administration Imaging: - MRI 03/01 failed to reveal CBD stones. CBD 6mm - HIDA was negative for cystic duct obstruction Assessment: 52 year old female with pmhx of HTN (no meds per [facility] pt states she is on meds, but does not remember which medication), pituitary brain tumor, migraines and borderline diabetes admitted with RUQ pain. Plan: 1. Cholelithiasis with acute cholecystitis - Likely stones have passed, negative imaging - On schedule for ERCP tomorrow - Continue ceftriaxone/flagyl - Will need cholecystectomy prior to discharge - Surgery/GI following - NPO after MN 2. Elevated LFTs - Decreasing, will monitor 3. Acute migraine - Resolved after dose decadron - Continue pamelor, imitrex, fioricet 4. HTN urgency - Improved - Hydralazine 25mg BID, uptitrate as needed - Started labetalol 200mg BID - Continue losartan 100mg daily 5. Pituitary brain tumor, chronic - Patient follows neurologist at [facility] to continue Visit type - Emergency Visit Emergency Visit: Yes ED Registration Date: 02/27/17 Care time: The patient presented to the Emergency Department on the above date and was hospitalized for further evaluation of their emergent condition. - New Patient This patient is new to me today: No - Critical Care Critical Care patient: No
[2017-03-03] MEDS: LABETALOL HCL 200 MG TABLET (FP) PO SCH ×2 (13:23→21:10)
[2017-03-03] MEDS: ATORVASTATIN CA 80 MG TABLET (FP) PO SCH (21:10)
[2017-03-03] MEDS: NORTRIPTYLINE HCL 25 MG CAPSULE PO SCH (21:13)
[2017-03-04] MEDS: DEXTROSE 5%-0.45% SALINE 1,000 ML IV SCH ×2 (00:15→14:19)
[2017-03-04] MEDS: METRONIDAZOLE 500 MG PREMIXED 500 MG/100 ML MG IVPB SCH ×3 (02:37→17:14)
[2017-03-04] MEDS: METOCLOPRAMIDE HCL INJECTION 10 MG/2 ML VIAL IVPB SCH ×4 (02:37→21:08)
[2017-03-04] MEDS ORDERED: PT OWN MED DRAWER 7, Y5N ONE ×5 (06:16→21:19)
[2017-03-04] MEDS: SUMAtriptan SUCCINATE 25 MG TABLET PO PRN ×2 (06:17→19:44)
[2017-03-04 08:41] LABS: ALBUMIN 3.2 g/dl (3.4-5.0); ANION GAP 6 (8-16); CALCIUM 8.6 mg/dL (8.5-10.1); CO2 29 mmol/L (21-32); GLUCOSE,RANDOM 131 mg/dL (74-106)
[2017-03-04 08:46] LABS: ALK PHOS 204 U/L (45-117); BILIRUBIN,TOTAL 0.5 mg/dL (0.2-1.0); CREATININE 0.7 mg/dL (0.55-1.02); SGOT/AST 45 U/L (15-37); SGPT/ALT 117 U/L (12-78); TOT PROT 6.2 g/dl (6.4-8.2)
--- NOTE | 2017-03-04 10:10 | PN ---
Progress Note, Physician History of Present Illness: Pain free. No events - Current Medication List Current Medications: Active Medications Atorvastatin Calcium (Lipitor -) 80 mg PO HS ANNMARIE Last Admin: 03/03/17 21:10 Dose: 80 mg Hydralazine HCl (Apresoline -) 25 mg PO BID ANNMARIE Last Admin: 03/03/17 21:10 Dose: 25 mg Dextrose/Sodium Chloride (D5-1/2ns -) 1,000 mls @ 100 mls/hr IV ASDIR ANNMARIE Last Admin: 03/04/17 00:15 Dose: 100 mls/hr Metronidazole (Flagyl 500mg Premixed Ivpb -) 500 mg in 100 mls @ 100 mls/hr IVPB Q8H-IV ANNMARIE Last Admin: 03/04/17 02:37 Dose: 100 mls/hr CEFTRIAXONE 1 G/50 ML PREMIX (Ceftriaxone 1 Gm-D5w Bag) 50 mls @ 100 mls/hr IVPB DAILY [facility] Last Admin: 03/03/17 11:24 Dose: 100 mls/hr Labetalol HCl (Normodyne -) 200 mg PO BID [facility] Last Admin: 03/03/17 21:10 Dose: 200 mg Losartan Potassium (Losartan Potassium) 100 mg PO DAILY [facility] Last Admin: 03/03/17 10:21 Dose: 100 mg Meclizine HCl (Antivert -) 25 mg PO BID PRN PRN Reason: VERTIGO Last Admin: 02/28/17 00:19 Dose: 25 mg Metoclopramide HCl (Reglan Injection -) 10 mg IVPB Q6H-IV [facility] Last Admin: 03/04/17 08:34 Dose: 10 mg Morphine Sulfate (Morphine Sulfate) 2 mg IVPUSH Q4H PRN PRN Reason: PAIN Nortriptyline HCl (Pamelor -) 50 mg PO HS [facility] Last Admin: 03/03/17 21:13 Dose: 50 mg Sumatriptan Succinate (Imitrex -) 25 mg PO Q8H PRN PRN Reason: HEADACHE Last Admin: 03/04/17 06:17 Dose: 25 mg Valacyclovir HCl (Valtrex -) 1,000 mg PO DAILY [facility] Last Admin: 03/03/17 10:21 Dose: 1,000 mg - Objective Vital Signs: Vital Signs Temperature 98.3 F 03/04/17 05:53 Pulse Rate 70 03/04/17 05:53 Respiratory Rate 19 03/04/17 05:53 Blood Pressure 106/60 03/04/17 05:53 O2 Sat by Pulse Oximetry (%) 97 03/03/17 21:00 Constitutional: Yes: No Distress Eyes: Yes: Conjunctiva Clear Cardiovascular: Yes: Regular Rate and Rhythm Respiratory: Yes: Regular Gastrointestinal: Yes: Soft. No: Tenderness Neurological: Yes: Alert, Oriented Labs: CBC, BMP 03/03/17 07:30 03/04/17 07:30 INR, PTT INR 1.05 (0.82-1.09) 03/03/17 07:30 CBCD WBC 8.6 K/mm3 (4.0-10.0) 03/03/17 07:30 RBC 4.02 M/mm3 (3.60-5.2) 03/03/17 07:30 Hgb 11.6 GM/dL (10.7-15.3) 03/03/17 07:30 Hct 34.8 % (32.4-45.2) 03/03/17 07:30 MCV 86.7 fl (80-96) 03/03/17 07:30 MCHC 33.3 g/dl (32.0-36.0) 03/03/17 07:30 RDW 12.9 % (11.6-15.6) 03/03/17 07:30 Plt Count 293 K/MM3 (134-434) 03/03/17 07:30 MPV 7.9 fl (7.5-11.1) 03/03/17 07:30 CMP Sodium 141 mmol/L (136-145) 03/04/17 07:30 Potassium 4.3 mmol/L (3.5-5.1) 03/04/17 07:30 Chloride 106 mmol/L (98-107) 03/04/17 07:30 Carbon Dioxide 29 mmol/L (21-32) D 03/04/17 07:30 Anion Gap 6 (8-16) L 03/04/17 07:30 BUN 7 mg/dL (7-18) 03/04/17 07:30 Creatinine 0.7 mg/dL (0.55-1.02) 03/04/17 07:30 Creat Clearance w eGFR > 60 (>60) 03/04/17 07:30 Calcium 8.6 mg/dL (8.5-10.1) 03/04/17 07:30 Total Bilirubin 0.5 mg/dL (0.2-1.0) 03/04/17 07:30 AST 45 U/L (15-37) H 03/04/17 07:30 ALT 117 U/L (12-78) H 03/04/17 07:30 Alkaline Phosphatase 204 U/L (45-117) H 03/04/17 07:30 Total Protein 6.2 g/dl (6.4-8.2) L 03/04/17 07:30 Albumin 3.2 g/dl (3.4-5.0) L 03/04/17 07:30 Laboratory Results - last 24 hr 03/04/17 07:30 Sodium 141 Potassium 4.3 Chloride 106 Carbon Dioxide 29 D Anion Gap 6 L BUN 7 Creatinine 0.7 Creat Clearance w eGFR > 60 Random Glucose 131 H D Calcium 8.6 Total Bilirubin 0.5 AST 45 H ALT 117 H Alkaline Phosphatase 204 H Total Protein 6.2 L Albumin 3.2 L Problem List - Problems (1) Transaminasemia Code(s): R74.0 - NONSPEC ELEV OF LEVELS OF TRANSAMNS & LACTIC ACID DEHYDRGNSE (2) Cholestasis Code(s): K83.1 - OBSTRUCTION OF BILE DUCT (3) Acute cholecystitis Code(s): K81.0 - ACUTE CHOLECYSTITIS Assessment/Plan Cholecystitis cholelithiasis Discussed ERCP with Dr. Martinez - no indication at this time. Surgery. Reevaluate fat free diet Continue Abx
[2017-03-04] MEDS: CEFTRIAXONE 1 G/50 ML PREMIX 50 ML IVPB SCH (10:15)
[2017-03-04] MEDS: LABETALOL HCL 200 MG TABLET (FP) PO SCH ×2 (10:16→21:08)
[2017-03-04] MEDS: valACYclovir HCL 500 MG TABLET (FP) PO SCH (10:16)
[2017-03-04] MEDS: LOSARTAN POTASSIUM 100 MG TABLET PO SCH (10:16)
[2017-03-04] MEDS: hydrALAZINE HCL 25 MG TABLET (FP) PO SCH ×2 (10:16→21:09)
[2017-03-04] MEDS ORDERED: PROPOFOL 20 ML ONE ×2 (11:21)
--- NOTE | 2017-03-04 15:10 | PN ---
Physical Exam: SUBJECTIVE: Patient seen and examined. Abdominal improved, migraine this AM, improved with fiorcet. Eager to go home OBJECTIVE: Vital Signs Period Temp Pulse Resp BP Sys/Wilkins Pulse Ox Last 24 Hr 97.9 F-98.4 F 70-92 16-20 102-148/60-91 97 PE Neuro: alert, awake, cn 2-12intact Pulm: CTAB CV: s1 s2 rrr no mrg Abd: s nt nd +bs Ext: no le edema, warm + DP pulses Laboratory Results - last 24 hr 03/04/17 07:30 Sodium 141 Potassium 4.3 Chloride 106 Carbon Dioxide 29 D Anion Gap 6 L BUN 7 Creatinine 0.7 Creat Clearance w eGFR > 60 Random Glucose 131 H D Calcium 8.6 Total Bilirubin 0.5 AST 45 H ALT 117 H Alkaline Phosphatase 204 H Total Protein 6.2 L Albumin 3.2 L Active Medications Generic Name Dose Route Start Last Admin Trade Name Freq PRN Reason Stop Dose Admin Atorvastatin Calcium 80 mg 03/01/17 22:00 03/03/17 21:10 Lipitor - PO 80 mg HS ANNMARIE Administration Hydralazine HCl 25 mg 03/03/17 10:00 03/04/17 10:16 Apresoline - PO 25 mg BID ANNMARIE Administration Dextrose/Sodium Chloride 1,000 mls @ 100 mls/hr 03/04/17 00:01 03/04/17 14:19 D5-1/2ns - IV 100 mls/hr ASDIR ANNMARIE Administration Metronidazole 500 mg in 100 mls @ 100 mls/hr 03/02/17 17:15 03/04/17 11:14 Flagyl 500mg Premixed Ivpb - IVPB 100 mls/hr Q8H-IV ANNMARIE Administration CEFTRIAXONE 1 G/50 ML PREMIX 50 mls @ 100 mls/hr 03/02/17 17:15 03/04/17 10: 15 Ceftriaxone 1 Gm-D5w Bag IVPB 100 mls/hr DAILY ANNMARIE Administration Labetalol HCl 200 mg 03/02/17 22:00 03/04/17 10:16 Normodyne - PO 200 mg BID ANNMARIE Administration Losartan Potassium 100 mg 03/01/17 15:19 03/04/17 10:16 Losartan Potassium PO 100 mg DAILY ANNMARIE Administration Meclizine HCl 25 mg 02/27/17 17:43 02/28/17 00:19 Antivert - PO 25 mg BID PRN Administration VERTIGO Metoclopramide HCl 10 mg 02/28/17 12:00 03/04/17 14:20 Reglan Injection - IVPB 10 mg Q6H-IV ANNMARIE Administration Morphine Sulfate 2 mg 02/27/17 17:02 03/04/17 14:20 Morphine Sulfate IVPUSH 2 mg Q4H PRN Administration PAIN Nortriptyline HCl 50 mg 02/28/17 07:59 03/03/17 21:13 Pamelor - PO 50 mg HS ANNMARIE Administration Sumatriptan Succinate 25 mg 02/27/17 19:41 03/04/17 06:17 Imitrex - PO 25 mg Q8H PRN Administration HEADACHE Valacyclovir HCl 1,000 mg 02/28/17 10:00 03/04/17 10:16 Valtrex - PO 1,000 mg DAILY ANNMARIE Administration Imaging: - MRI 03/01 failed to reveal CBD stones. CBD 6mm - HIDA was negative for cystic duct obstruction Assessment: 52 year old female with pmhx of HTN (no meds per [facility] pt states she is on meds, but does not remember which medication), pituitary brain tumor, migraines and borderline diabetes admitted with RUQ pain. Plan: 1. Cholelithiasis with acute cholecystitis - Likely stones have passed, negative imaging - No ercp today - Continue ceftriaxone/flagyl - Will need cholecystectomy prior to discharge, decision differed to Surgery, awaiting call back - Surgery/GI following 2. Elevated LFTs - Decreasing, will monitor 3. Acute migraine - Resolved after dose decadron - Continue pamelor, imitrex, fioricet 4. HTN urgency - Improved - Hydralazine 25mg BID, uptitrate as needed - Started labetalol 200mg BID - Continue losartan 100mg daily 5. Pituitary brain tumor, chronic - Patient follows neurologist at [facility] to continue Visit type - Emergency Visit Emergency Visit: Yes ED Registration Date: 02/27/17 Care time: The patient presented to the Emergency Department on the above date and was hospitalized for further evaluation of their emergent condition. - New Patient This patient is new to me today: No - Critical Care Critical Care patient: No
--- NOTE | 2017-03-04 16:05 | PN ---
Progress Note (short form) - Note Progress Note: surgery spoke with patient. no further symptoms. Gi has determined that there is no indication for ercp and stone has passed. will move in direction of surgery tomorrow if lfts cont to drop.
[2017-03-04] MEDS: SODIUM CHLORIDE 0.45% 1,000 ML IV SCH (19:46)
[2017-03-04] MEDS: ATORVASTATIN CA 80 MG TABLET (FP) PO SCH (21:08)
[2017-03-04] MEDS: NORTRIPTYLINE HCL 25 MG CAPSULE PO SCH (21:13)
[2017-03-05] MEDS: METOCLOPRAMIDE HCL INJECTION 10 MG/2 ML VIAL IVPB SCH ×4 (02:43→21:56)
[2017-03-05] MEDS: METRONIDAZOLE 500 MG PREMIXED 500 MG/100 ML MG IVPB SCH ×3 (02:43→19:03)
[2017-03-05 08:16] LABS: ALBUMIN 2.9 g/dl (3.4-5.0); ALK PHOS 185 U/L (45-117); ANION GAP 6 (8-16); BILIRUBIN,TOTAL 0.5 mg/dL (0.2-1.0); CALCIUM 7.9 mg/dL (8.5-10.1); CO2 26 mmol/L (21-32); CREATININE 0.6 mg/dL (0.55-1.02); GLUCOSE,RANDOM 105 mg/dL (74-106); SGOT/AST 30 U/L (15-37); SGPT/ALT 85 U/L (12-78); TOT PROT 5.9 g/dl (6.4-8.2)
[2017-03-05] MEDS: CEFTRIAXONE 1 G/50 ML PREMIX 50 ML IVPB SCH (09:44)
[2017-03-05] MEDS: LOSARTAN POTASSIUM 100 MG TABLET PO SCH (09:49)
[2017-03-05] MEDS: LABETALOL HCL 200 MG TABLET (FP) PO SCH ×2 (09:49→21:56)
[2017-03-05] MEDS: valACYclovir HCL 500 MG TABLET (FP) PO SCH (09:49)
[2017-03-05] MEDS: hydrALAZINE HCL 25 MG TABLET (FP) PO SCH ×2 (09:49→21:56)
[2017-03-05] MEDS: SODIUM CHLORIDE 0.45% 1,000 ML IV SCH (09:54)
--- NOTE | 2017-03-05 10:16 | PN ---
Progress Note, Physician History of Present Illness: States ruq pain is better, but still present. NPO. No events - Current Medication List Current Medications: Active Medications Atorvastatin Calcium (Lipitor -) 80 mg PO HS ANNMARIE Last Admin: 03/04/17 21:08 Dose: 80 mg Hydralazine HCl (Apresoline -) 25 mg PO BID ANNMARIE Last Admin: 03/05/17 09:49 Dose: Not Given Metronidazole (Flagyl 500mg Premixed Ivpb -) 500 mg in 100 mls @ 100 mls/hr IVPB Q8H-IV ANNMARIE Last Admin: 03/05/17 02:43 Dose: 100 mls/hr CEFTRIAXONE 1 G/50 ML PREMIX (Ceftriaxone 1 Gm-D5w Bag) 50 mls @ 100 mls/hr IVPB DAILY ANNMARIE Last Admin: 03/05/17 09:44 Dose: 100 mls/hr Sodium Chloride (1/2 Normal Saline) 1,000 mls @ 83 mls/hr IV ASDIR ANNMARIE Last Admin: 03/05/17 09:54 Dose: 83 mls/hr Labetalol HCl (Normodyne -) 200 mg PO BID ANNMARIE Last Admin: 03/05/17 09:49 Dose: Not Given Losartan Potassium (Losartan Potassium) 100 mg PO DAILY ANNMARIE Last Admin: 03/05/17 09:49 Dose: Not Given Meclizine HCl (Antivert -) 25 mg PO BID PRN PRN Reason: VERTIGO Last Admin: 02/28/17 00:19 Dose: 25 mg Metoclopramide HCl (Reglan Injection -) 10 mg IVPB Q6H-IV ANNMARIE Last Admin: 03/05/17 09:44 Dose: 10 mg Morphine Sulfate (Morphine Sulfate) 2 mg IVPUSH Q4H PRN PRN Reason: PAIN Last Admin: 03/04/17 14:20 Dose: 2 mg Nortriptyline HCl (Pamelor -) 50 mg PO HS ANNMARIE Last Admin: 03/04/17 21:13 Dose: 50 mg Sumatriptan Succinate (Imitrex -) 25 mg PO Q8H PRN PRN Reason: HEADACHE Last Admin: 03/04/17 19:44 Dose: 25 mg Valacyclovir HCl (Valtrex -) 1,000 mg PO DAILY ANNMARIE Last Admin: 03/05/17 09:49 Dose: Not Given - Objective Vital Signs: Vital Signs Temperature 98.0 F 03/05/17 09:01 Pulse Rate 79 03/05/17 09:01 Respiratory Rate 20 03/05/17 09:01 Blood Pressure 134/70 03/05/17 09:01 O2 Sat by Pulse Oximetry (%) 98 03/04/17 22:00 Constitutional: Yes: No Distress, Calm Eyes: Yes: Conjunctiva Clear Gastrointestinal: Yes: Tenderness. No: Distention, Vomiting Neurological: Yes: Alert, Oriented Labs: CBC, BMP 03/03/17 07:30 03/05/17 07:30 INR, PTT INR 1.05 (0.82-1.09) 03/03/17 07:30 Laboratory Results - last 24 hr 03/05/17 07:30 Sodium 141 Potassium 4.2 Chloride 109 H Carbon Dioxide 26 Anion Gap 6 L BUN 5 L D Creatinine 0.6 Creat Clearance w eGFR > 60 Random Glucose 105 Calcium 7.9 L Total Bilirubin 0.5 AST 30 D ALT 85 H D Alkaline Phosphatase 185 H Total Protein 5.9 L Albumin 2.9 L Problem List - Problems (1) Transaminasemia Code(s): R74.0 - NONSPEC ELEV OF LEVELS OF TRANSAMNS & LACTIC ACID DEHYDRGNSE (2) Cholestasis Code(s): K83.1 - OBSTRUCTION OF BILE DUCT (3) Acute cholecystitis Code(s): K81.0 - ACUTE CHOLECYSTITIS Assessment/Plan Cholecystitis cholelithiasis Cholecystectomy is planned for today. Pt is aware
--- NOTE | 2017-03-05 11:07 | PN ---
Physical Exam: SUBJECTIVE: Patient seen and examined. RUQ improved, reports migraine. Wants to go home after surgery OBJECTIVE: Vital Signs Period Temp Pulse Resp BP Sys/Wilkins Pulse Ox Last 24 Hr 97.8 F-98.8 F 78-92 16-20 102-148/67-79 98 PE Neuro: alert, awake, cn 2-12intact Pulm: CTAB CV: s1 s2 rrr no mrg Abd: s nt nd +bs Ext: no le edema, warm + DP pulses Laboratory Results - last 24 hr 03/05/17 07:30 Sodium 141 Potassium 4.2 Chloride 109 H Carbon Dioxide 26 Anion Gap 6 L BUN 5 L D Creatinine 0.6 Creat Clearance w eGFR > 60 Random Glucose 105 Calcium 7.9 L Total Bilirubin 0.5 AST 30 D ALT 85 H D Alkaline Phosphatase 185 H Total Protein 5.9 L Albumin 2.9 L Active Medications Generic Name Dose Route Start Last Admin Trade Name Freq PRN Reason Stop Dose Admin Atorvastatin Calcium 80 mg 03/01/17 22:00 03/04/17 21:08 Lipitor - PO 80 mg HS ANNMARIE Administration Hydralazine HCl 25 mg 03/03/17 10:00 03/05/17 09:49 Apresoline - PO Not Given BID ANNMARIE Metronidazole 500 mg in 100 mls @ 100 mls/hr 03/02/17 17:15 03/05/17 10:47 Flagyl 500mg Premixed Ivpb - IVPB 100 mls/hr Q8H-IV ANNMARIE Administration CEFTRIAXONE 1 G/50 ML PREMIX 50 mls @ 100 mls/hr 03/02/17 17:15 03/05/17 09: 44 Ceftriaxone 1 Gm-D5w Bag IVPB 100 mls/hr DAILY ANNMARIE Administration Sodium Chloride 1,000 mls @ 83 mls/hr 03/04/17 19:00 03/05/17 09:54 1/2 Normal Saline IV 83 mls/hr ASDIR ANNMARIE Administration Labetalol HCl 200 mg 03/02/17 22:00 03/05/17 09:49 Normodyne - PO Not Given BID ANNMARIE Losartan Potassium 100 mg 03/01/17 15:19 03/05/17 09:49 Losartan Potassium PO Not Given DAILY ANNMARIE Meclizine HCl 25 mg 02/27/17 17:43 02/28/17 00:19 Antivert - PO 25 mg BID PRN Administration VERTIGO Metoclopramide HCl 10 mg 02/28/17 12:00 03/05/17 09:44 Reglan Injection - IVPB 10 mg Q6H-IV ANNMARIE Administration Morphine Sulfate 2 mg 02/27/17 17:02 03/04/17 14:20 Morphine Sulfate IVPUSH 2 mg Q4H PRN Administration PAIN Nortriptyline HCl 50 mg 02/28/17 07:59 03/04/17 21:13 Pamelor - PO 50 mg HS ANNMARIE Administration Sumatriptan Succinate 25 mg 02/27/17 19:41 03/04/17 19:44 Imitrex - PO 25 mg Q8H PRN Administration HEADACHE Valacyclovir HCl 1,000 mg 02/28/17 10:00 03/05/17 09:49 Valtrex - PO Not Given DAILY ANNMARIE Imaging: - MRI 03/01 failed to reveal CBD stones. CBD 6mm - HIDA was negative for cystic duct obstruction Assessment: 52 year old female with pmhx of HTN (no meds per [facility] pt states she is on meds, but does not remember which medication), pituitary brain tumor, migraines and borderline diabetes admitted with RUQ pain. Plan: 1. Cholelithiasis with acute cholecystitis - For cholecystectomy today - Continue ceftriaxone/flagyl - Surgery seeing 2. Elevated LFTs - Continues to down trend 3. Acute migraine - Resolved after dose decadron - Continue pamelor, imitrex, fioricet PRN 4. HTN urgency - Keep Hydralazine 25mg BID for d/w pt to follow up as outpt with pcp to titrate off and change to possibly norvasc/hctz - Started labetalol 200mg BID - Continue losartan 100mg daily 5. Pituitary brain tumor, chronic - Patient follows neurologist at [facility] to continue Visit type - Emergency Visit Emergency Visit: Yes ED Registration Date: 02/27/17 Care time: The patient presented to the Emergency Department on the above date and was hospitalized for further evaluation of their emergent condition. - New Patient This patient is new to me today: No - Critical Care Critical Care patient: No
[2017-03-05] MEDS ORDERED: morphine SULFATE 4 MG/ML VIAL IVPUSH PRN ×2 (11:38→17:58)
[2017-03-05] MEDS ORDERED: MIDAZOLAM HCL 2 MG/2 ML SINGLE DOSE VIAL ONE (15:37)
[2017-03-05] MEDS ORDERED: PROPOFOL 20 ML ONE (15:37)
[2017-03-05] MEDS ORDERED: fentaNYL CITRATE 250 MCG/5 ML VIAL ONE (15:37)
[2017-03-05] MEDS ORDERED: ROCURONIUM BROMIDE 50 MG/5 ML VIAL ONE (15:37)
[2017-03-05] MEDS ORDERED: SUCCINYLCHOLINE CHLORIDE 200 MG/10 ML VIAL ONE (15:38)
[2017-03-05] MEDS ORDERED: ceFAZolin SODIUM 1 GM VIAL ONE (15:39)
[2017-03-05] MEDS ORDERED: SODIUM CHLORIDE 0.9% P/F 10 ML VIAL IJ ONE (15:39)
--- NOTE | 2017-03-05 15:57 | OP ---
Operative Note - Note: Operative Date: 03/05/17 Pre-Operative Diagnosis: cholelithiasis, choledocholithiasis Operation: laparoscopic cholecystectomy Findings: pale gb, Post-Operative Diagnosis: Same as Pre-op Surgeon: Francisco Hawkins Anesthesiologist/TECHNOLOGY PROFESSIONAL: Jose Luis Leach Anesthesia: General Specimens Removed: gb Estimated Blood Loss (mls): 10
[2017-03-05] MEDS ORDERED: ACETAMINOPHEN 325 MG TABLET (FP) PO PRN ×2 (16:04→17:58)
[2017-03-05] MEDS ORDERED: oxyCODONE HCL 5 MG TABLET PO PRN ×2 (16:04→17:58)
[2017-03-05] MEDS ORDERED: morphine SULFATE 4 MG/ML VIAL IVPB PRN ×2 (16:04→17:58)
[2017-03-05] MEDS ORDERED: NEOSTIGMINE METHYLSULFATE 0.5 MG/ML - 10 ML MDV ONE (16:45)
[2017-03-05] MEDS ORDERED: GLYCOPYRROLATE 0.2 MG/1 ML VIAL ONE (16:45)
[2017-03-05] MEDS ORDERED: morphine CARPU-JECT 4 MG/1 ML DISP.SYRIN IM PRN (17:58)
[2017-03-05] MEDS ORDERED: morphine CARPU-JECT 2 MG/1 ML DISP.SYRIN IM PRN (17:58)
[2017-03-05] MEDS ORDERED: MECLIZINE HCL 25 MG TABLET (FP) PO PRN (17:58)
[2017-03-05] MEDS ORDERED: SUMAtriptan SUCCINATE 25 MG TABLET PO PRN (17:58)
[2017-03-05] MEDS ORDERED: SODIUM CHLORIDE 0.45% 1,000 ML IV SCH (17:58)
[2017-03-05] MEDS: LACTATED RINGERS SOLUTION 1,000 ML IV SCH (18:12)
--- NOTE | 2017-03-05 19:42 | OP ---
DATE OF OPERATION: 03/05/2017 PREOPERATIVE DIAGNOSIS: Cholelithiasis, suspect choledocholithiasis. POSTOPERATIVE DIAGNOSIS: Cholelithiasis, suspect choledocholithiasis. PROCEDURE: Laparoscopic cholecystectomy, lavage. SURGEON: Francisco Hawkins D.O. LABEL DESIGNER: None. ANESTHESIOLOGIST: Jose Luis Leach M.D. INTRAOPERATIVE FINDINGS: A pale non-thickened gallbladder. BLOOD LOSS: Minimal. DRAINS: None. COMPLICATIONS: None. SPECIMEN: Gallbladder. DISPOSITION: To recovery room in stable condition. BRIEF HISTORY: This is a 52-year-old female who presented to [facility] with a right upper quadrant abdominal pain. She had ultrasound findings of gallstones. She had a HIDA scan which was negative. She had an MRCP because of elevated liver function tests, which showed no evidence of choledocholithiasis. Her liver function tests were followed and slowly improved. The GI service evaluated the patient and felt that she had passed the stone and that there was no indication for ERCP. She presents now for cholecystectomy. DESCRIPTION OF PROCEDURE: The patient was placed in supine position. After general anesthesia was initiated, the abdomen was prepped and draped in sterile fashion. A vertical incision was made infraumbilical with scalpel used to go through skin and subcutaneous tissue. The fascia was then lifted with Donny clamp. The Veress needle was inserted, and pneumoperitoneum was created. Next, an 11-mm trocar was placed, followed by insertion of a 10-mm, 0-degree laparoscope. Next, an additional 11-mm trocar was placed subxiphoid and two 5-mm trocars were placed in right upper quadrant. Attention was turned toward the gallbladder. It was pale, bluish in color, non-thickened. The fundus was cephalad. The infundibulum retracted laterally. The peritoneal peel was dissected down, exposing a generous cystic duct and cystic artery. There were a cluster of stones, able to be seen translucently through the cystic duct. The Endo TINO multifire vascular load stapler was used to divide the cystic duct. The staple line was inspected. It was intact. There was no bleeding, no breaks or sign of ischemia. Next, the cystic artery was clipped and divided. The gallbladder was then liberated from the liver bed using electrocautery, and hemostasis was maintained using electrocautery. At this point, the gallbladder was removed through the infraumbilical trocar site and sent to pathology marked as specimen. Trocars were removed under direct visualization. No bleeding was noted. Next, the fascia of the infraumbilical trocar site was then closed with multiple interrupted 0 Vicryl sutures. The four skin incisions were closed with Biosyn, and Dermabond dressing was placed. DO LISA BRENNER/[id number] MTDD
[2017-03-05] MEDS: ONDANSETRON 4 MG/2 ML VIAL IVPUSH PRN (21:15)
[2017-03-05] MEDS ORDERED: PT OWN MED DRAWER 7, Y5N ONE (21:54)
[2017-03-05] MEDS ORDERED: NORTRIPTYLINE HCL 50 MG CAPSULE PO SCH (22:00)
[2017-03-05] MEDS ORDERED: ATORVASTATIN CA 80 MG TABLET (FP) PO SCH (22:00)
[2017-03-06] MEDS: METRONIDAZOLE 500 MG PREMIXED 500 MG/100 ML MG IVPB SCH ×2 (01:46→10:11)
[2017-03-06] MEDS: LACTATED RINGERS SOLUTION 1,000 ML IV SCH (01:46)
[2017-03-06] MEDS: METOCLOPRAMIDE HCL INJECTION 10 MG/2 ML VIAL IVPB SCH ×3 (03:30→15:31)
[2017-03-06] MEDS ORDERED: PT OWN MED DRAWER 7, Y5N ONE ×2 (04:00→07:19)
[2017-03-06] MEDS: ONDANSETRON 4 MG/2 ML VIAL IVPUSH PRN (04:04)
[2017-03-06 09:49] VITALS: BP 120/79; PULSE 104; TEMP 98.7
[2017-03-06] MEDS ORDERED: ENOXAPARIN NA (PORCINE) 40 MG/0.4 ML DISP.SYRIN SQ SCH ×2 (10:00)
[2017-03-06] MEDS ORDERED: LOSARTAN POTASSIUM 50 MG TABLET (FP) PO SCH (10:00)
[2017-03-06] MEDS ORDERED: CEFTRIAXONE 1 G/50 ML PREMIX 50 ML IVPB SCH (10:00)
[2017-03-06] MEDS ORDERED: PANTOPRAZOLE SODIUM 40 MG VIAL IVPUSH SCH ×2 (10:00)
[2017-03-06] MEDS ORDERED: valACYclovir HCL 500 MG TABLET (FP) PO SCH (10:00)
[2017-03-06] MEDS: LABETALOL HCL 200 MG TABLET (FP) PO SCH (10:10)
[2017-03-06] MEDS: hydrALAZINE HCL 25 MG TABLET (FP) PO SCH (10:10)
--- NOTE | 2017-03-06 13:50 | DS ---
Physical Exam: SUBJECTIVE: Patient seen and examined. Tolerated pancakes this am, said her BIGGS is improving OBJECTIVE: Last Vital Signs Temp Pulse Resp BP Pulse Ox 98.7 F 104 H 20 120/79 99 03/06/17 09:46 03/06/17 09:46 03/06/17 10:00 03/06/17 09:46 03/06/17 10:00 PE Neuro: alert, awake, cn 2-12intact Pulm: CTAB CV: s1 s2 rrr no mrg Abd: x3 incisions CDI, mild low abd distention Ext: no le edema, warm + DP pulses HOSPITAL COURSE: Date of Admission:02/27/17 Date of Discharge: 03/06/17 Minutes to complete discharge: 37 Discharge Summary Reason For Visit: ACUTE CHOLECYSTITIS Current Active Problems Acute cholecystitis (Acute) Cholelithiasis (Acute) Cholestasis (Acute) Transaminasemia (Acute) Hospital Course: Initial Hospital Course: Briefly, this 52 year old female with history of pituitary tumor, HTN and RUQ pain x 3 month on and off when the pain got worsened. No alleviating, or aggravating factors. 01/22, RUQ, non-radiating with chills, nausea and vomiting. No history of hepatobiliary issues in the past. No history of PUD, gastric ulcers, pancreatitis. Lipase normal, transaminases in 300, ALP and t. bili mildly elevated. Imaging: - MRI 03/01 failed to reveal CBD stones. CBD 6mm - HIDA was negative for cystic duct obstruction - US positive for cholelithiasis, possible cholecyctitis. biliary ducts not dilated Subsequent Hospital Course/Progress Note/Discharge Summary: Assessment: 52 year old female with pmhx of HTN (no meds per [facility] pt states she is on meds, but does not remember which medication), pituitary brain tumor, migraines and borderline diabetes admitted with RUQ pain. Plan: 1. Cholelithiasis with acute cholecystitis - s/p cholecystectomy 03/05 - Completed course of ceftriaxone/flagyl in house 2. Elevated LFTs - Continued to down trend 3. Acute migraine - Resolved after dose decadron - Continue pamelor, imitrex, fioricet PRN 4. HTN urgency - Keep Hydralazine 25mg BID for d/w pt to follow up as outpt with pcp to titrate off and change to possibly norvasc/hctz - Started labetalol 200mg BID - Continue losartan 100mg daily 5. Pituitary brain tumor, chronic - Patient follows neurologist at [facility] to continue Dispo: - Home with above meds and follow up plan, surgery follow up in 2 weeks referral enclosed - Pt aware and agrees Condition: Stable - Instructions Diet, Activity, Other Instructions: Please return to the ED for any new, persistent, or worsening symptoms. Follow up with your PCP in 1 week. Have your doctor follow up on your blood pressure and blood pressure medication management. (titrate off hydralazine and start new medications if indicated and BP better controlled) Take blood pressure meds as directed Follow up with surgery in 2 weeks (referral information enclosed) Referrals: Paul Mosqueda MD [Primary Care Provider] - Francisco Hawkins MD [Staff Physician] - Disposition: HOME - Home Medications Comprehensive Discharge Medication List: Ambulatory Orders Nortriptyline HCl [Pamelor -] 50 mg PO HS 02/27/17 Sumatriptan Succinate [Imitrex -] 25 mg PO ASDIR 02/27/17 Valacyclovir HCl [Valtrex] 1,000 mg PO BID PRN 02/27/17 Atorvastatin Ca [Lipitor] 20 mg PO HS #30 tablet 03/06/17 Hydralazine HCl [Apresoline -] 25 mg PO BID #60 tablet 03/06/17 Labetalol HCl [Normodyne -] 200 mg PO BID #60 tablet 03/06/17 Losartan Potassium [Cozaar -] 100 mg PO DAILY #30 tablet 03/06/17 This patient is new to me today: No Emergency Visit: Yes ED Registration Date: 02/27/17 Care time: The patient presented to the Emergency Department on the above date and was hospitalized for further evaluation of their emergent condition. Critical Care patient: No - Discharge Referral Referred to [facility] Med P.C.: No
[2017-03-06] MEDS ORDERED: NORTRIPTYLINE HCL 25 MG CAPSULE PO SCH (22:00)
--- NOTE | 2017-03-08 15:56 | PATH ---
Surgical Pathology Report Patient Name: KATIE PARSON [facility]. Rec. #: [id number] /Age/Gender: 1965 (Age: 52) / F Account: [id number] Location: EMERGENCY ROOM Taken: 03/05/2017 Received: 03/06/2017 Reported: 03/08/2017 Physicians: Francisco Hawkins M.D. Specimen(s) Received GALLBLADDER Clinical History Acute cholecystitis Final Diagnosis GALLBLADDER, CHOLECYSTECTOMY: CHRONIC CHOLECYSTITIS AND CHOLELITHIASIS. Electronically Signed Venu Plata M.D. Gross Description Received in formalin, labeled "gallbladder," is a 6.1 x 2.5 x 2.3 cm. gallbladder with a 0.2 cm. in length portion of cystic duct attached. The outer surface is fenton and varies from smooth to shaggy. The lumen contains green, tenacious bile as well as multiple yellow, bosselated choleliths ranging from 0.2-0.4 cm in greatest dimension. The mucosa is green and velvety. The wall of the gallbladder averages 0.1 cm. in thickness. Drafting Clerk sections are submitted in one cassette. 03/06/201703/06/2017
== END 2017-03-06 15:45 | disposition home or self-care (01) | DRG 419 ==
LOC: JER 12:10 → JERBED 16:23 → J6S 22:50
PROVIDERS: ADMIT Internal Medicine; ATTEND Nurse Practitioner Acute Care
PROC: 0FT44ZZ Resection of Gallbladder, Percutaneous Endoscopic Approach (ICD-10-PCS; principal; 2017-03-05 13:30)
DX: K80.42 Calculus of bile duct with acute cholecystitis without obstruction (principal); R74.0 Nonspecific elevation of levels of transaminase and lactic acid dehydrogenase [LDH]; I10 Essential (primary) hypertension; I16.0 Hypertensive urgency; R73.03 Prediabetes; D35.2 Benign neoplasm of pituitary gland; G43.909 Migraine, unspecified, not intractable, without status migrainosus
CPT/HCPCS: 36415; 71010-TC; 74181-TC; 76705-TC; 78226-TC; 80053; 80061; 80076; 81003; 81015; 82248; 83036; 83605; 83690; 83721; 83735; 84100; 84484; 84703; 85025; 85027; 85610; 85730; 86850; 86900; 86901; 87040; 88304-TC; 93005; 93010; 94760; 97116-GP; 97161-GP; 99285-25; A9537; J1644